=== PATIENT | male | born 1955 | race American Indian/Alaskan Native ===

== ENCOUNTER 2018-02-09 13:10 | Inpatient (IN) | payer MEDICAID ==
--- NOTE | 2018-02-09 13:29 | C.PDOC ---
History Of Present Illness 63 y/o male presents to the ER requesting detox from ETOH. Pt drinks a pint a day and his last drink was today. He is c/o decreased appetite and weight loss for the past few months. He was seen by PMD yesterday and he had bloodwork done. He has a referral for GI for colonoscopy and his f/u in 2 weeks. Denies having fever, chills, nausea, and vomiting. Time Seen by Provider: 02/09/18 13:24 Chief Complaint (Nursing): Substance Abuse History Per: Patient History/Exam Limitations: no limitations Onset/Duration Of Symptoms: Days Current Symptoms Are (Timing): Still Present Severity: Moderate Past Medical History Reviewed: Historical Data, Nursing Documentation, Vital Signs Vital Signs: Last Vital Signs Temp 99.2 F 02/09/18 16:18 Pulse 94 H 02/09/18 16:18 Resp 16 02/09/18 16:18 BP 161/84 H 02/09/18 16:18 Pulse Ox 98 02/09/18 18:45 - Medical History PMH: Asthma Other Surgeries: Hx of surgeries Family History: States: No Known Family Hx - Social History Hx Alcohol Use: Yes Hx Substance Use: Yes (last use 2 weeks ago) - Immunization History Hx Tetanus Toxoid Vaccination: No Hx Influenza Vaccination: No Hx Pneumococcal Vaccination: No Review Of Systems Constitutional: Positive for: Weight loss. Negative for: Fever, Chills Physical Exam - Physical Exam Appears: Non-toxic, No Acute Distress, Other (cachectic) Skin: Normal Color, Warm, Dry Head: Atraumatic, Normacephalic Eye(s): bilateral: Normal Inspection Nose: Normal Oral Mucosa: Moist Neck: Supple Chest: Symmetrical Cardiovascular: Rhythm Regular Respiratory: Normal Breath Sounds, No Rales, No Rhonchi, No Wheezing Gastrointestinal/Abdominal: Bowel Sounds, Soft, No Tenderness, No Guarding, No Rebound ED Course And Treatment - Laboratory Results Result Diagrams: 02/09/18 13:54 02/09/18 13:54 O2 Sat by Pulse Oximetry: 98 Medical Decision Making Medical Decision Making: Plan: --Labs --UA pt is medically cleared for deotx admission, acceptped by Dr Braswell. seen by crisis Disposition Discussed With : Geraldo Braswell Doctor Will See Patient In The: Hospital - Disposition Disposition: HOSPITALIZED Disposition Time: 16:02 Condition: GOOD - Clinical Impression Clinical Impression: Alcohol use disorder, severe, dependence, Opioid use disorder, severe, dependence - PA / GAS STATION OPERATOR / Resident Statement MD/DO has reviewed & agrees with the documentation as recorded. - Scribe Statement The provider has reviewed the documentation as recorded by the Scribe Reynold Mckeon Provider Attestation All medical record entries made by the Scribe were at my direction and personally dictated by me. I have reviewed the chart and agree that the record accurately reflects my personal performance of the history, physical exam, medical decision making, and the department course for this patient. I have also personally directed, reviewed, and agree with the discharge instructions and disposition.
[2018-02-09 14:00] LABS: BASO # 0.1 K/uL (0.0-0.2); BASO % 0.7 % (0.0-2.0); EOS % 0.1 % (0.0-4.0); HEMOGLOBIN 12.7 g/dL (12.0-18.0); LYMPH # 1.4 K/uL (1.0-4.3); LYMPH % 18.4 % (20.0-40.0); MEAN CELL VOLUME 90.6 fL (80.0-94.0); MEAN CORPUSCULAR HEMOGLOBIN 30.5 pg (27.0-31.0); MEAN CORPUSCULAR HGB CONC 33.7 g/dL (33.0-37.0); MONO # 0.4 K/uL (0.0-0.8); MONO % 4.7 % (0.0-10.0); NEUT # 5.9 K/uL (1.8-7.0); NEUT % 76.1 % (50.0-75.0); RBC 4.15 Mil/uL (4.40-5.90); RED CELL DISTRIBUTION WIDTH 14.1 % (11.5-14.5); WHITE BLOOD COUNT 7.7 K/uL (4.8-10.8)
[2018-02-09 14:05] LABS: SQUAMOUS EPITHIAL 5 /hpf (0-5); URINE BILIRUBIN NEGATIVE (NEGATIVE); URINE BLOOD NEGATIVE (NEGATIVE); URINE CLARITY Hazy (Clear); URINE COLOR Yellow (YELLOW); URINE GLUCOSE (UA) NORMAL (Normal); URINE LEUKOCYTE ESTERASE NEG Leu/uL (Negative); URINE PROTEIN NEGATIVE (NEGATIVE); URINE UROBILINOGEN NORMAL mg/dL (0.2-1.0)
[2018-02-09 14:12] LABS: ALB/GLOB RATIO 1.2 (1.0-2.1); ALBUMIN 4.5 g/dL (3.5-5.0); ALT/SGPT 73 U/L (21-72); AST/SGOT 172 U/L (17-59); BLOOD UREA NITROGEN 10 mg/dL (9-20); CALCIUM 9.2 mg/dl (8.6-10.4); GFR NON-AFRICAN AMERICAN > 60
[2018-02-09 14:31] LABS: BARBITURATES, UR NEGATIVE (NEGATIVE); BENZODIAZEPINES, UR NEGATIVE (NEGATIVE); OPIATES, UR NEGATIVE (NEGATIVE); PHENCYCLIDINE, UR NEGATIVE (NEGATIVE)
--- NOTE | 2018-02-09 18:30 | PCM.BM ---
Treatment Plan Problems - Problems identified on initial assessmt Potential for alcohol withdrawal Date Initiated: 02/09/18 Time Initiated: 18:30 Assessment reference: NA Status: Active Treatment assets and liabiliti Patient Assests: ADL independent, negotiates basic needs, cognitively intact Patient Liabilities: substance abuse - Milieu Protocol Maintain good personal hygiene: daily Encourage regular showers, daily Remind patient to perform daily oral care, daily Assist patient to perform ADL's Conduct patient checks and document Observation sheet: Q15 minutes Maintain personal safety: every shift Educate patient to report safety concerns to staff, every shift Monitor environment for contraband/sharps Medication safety: Monitor for expected outcome, potential side effects: every shift, Assess barriers to learning: every shift, Assess readiness for medication education: every shift
--- NOTE | 2018-02-10 09:09 | PCM.PSYCH ---
Initial Psychiatric Evaluation - Initial Psychiatric Evaluation Type of Admission: Voluntary Legal Status: Capacity Chief Complaint (in patient's own words): I'm here for alcohol detox History of Present Illness and Precipitating Events: Pt is 63 years old who is , has no children, lives with 2 friends in a home, and is currently unemployed. Pt presenting for EtOH detoxification. He last drank this morning, and he has about 1 pt/day of vodka. This is his first detox for EtOH. He has been drinking EtOH since he was 11 years old. Pt also confirms to be using heroin (intranasally) 5 bags/day. He last used it 2 weeks ago and he has been detoxified for this about 15 times, last detox being last year. He was sober after this detoxification for 2 weeks, but relapsed because of depression. Pt states that his longest sobriety from this was 5 years. Pt smokes cigarettes 1 pack/day, but denies marijuana, cocaine, or any other drugs. Withdrawal symptoms are present Psych Hx: Pt confirms depression, decreased appetite (lost 30 lbs within 6 months), insomnia. Pt confirms agitation, impulsivity, but denies flight of ideas. Pt denies auditory, visual, or tactile hallucinations. Pt denies SI/HI. Pt denies any traumatic Hx Family Psych Hx: Unremarkable Legal Hx: Arrested in 2006 for possession of drugs Medical Hx: Pt is unsure of his history. Pt states he's taking medication but is unsure of what they are. Per the nurse, medications are Ventolin HFA 1 puff q4 PRN, Wellbutrin, 50mg, Advair. Per the nurse, the pt only brought Ventalin with him. Pt is unsure of his plan after he leaves detoxification. Current Medications: Active Medications Generic Name Dose Route Start Last Admin Trade Name Freq PRN Reason Stop Dose Admin Clonidine HCl 0.1 mg 02/09/18 19:12 02/10/18 06:23 Catapres PO 0.1 mg Q8 PRN Administration alcohol withdrawal Folic Acid 1 mg 02/10/18 10:00 Folic Acid PO DAILY ROCHELLE Lorazepam 2 mg 02/09/18 17:15 02/10/18 08:40 Ativan PO 02/14/18 17:14 Not Given Q4 ROCHELLE Taper Lorazepam 1 mg 02/09/18 17:15 02/10/18 06:23 Ativan PO 1 mg Q4H PRN Administration Symptoms of alcohol withdrawl Lorazepam 0 mg 02/10/18 09:15 Ativan PO 02/15/18 09:14 .TAPER ROCHELLE Taper Multivitamins 1 tab 02/10/18 10:00 Hexavitamin PO DAILY ROCHELLE Thiamine HCl 100 mg 02/10/18 10:00 Vitamin B1 Tab PO DAILY ROCHELLE Trazodone HCl 50 mg 02/09/18 17:15 Desyrel PO HS PRN Insomnia Past Psychiatric History - Past Psychiatric History Previous Treatment History: None Pertinent Medical Hx (Current Medical&Sleep Prob, Allergies): Allergies Allergy/AdvReac Type Severity Reaction Status Date / Time No Known Allergies Allergy Verified 02/09/18 13:18 Albuterol Sulfate [Ventolin Hfa] 1 puff IH PRN PRN 02/09/18 Bupropion HCl [Wellbutrin Sr] 150 mg PO DAILY 02/09/18 Fluticasone/Salmeterol [Airduo Respiclick 113-14 Mcg] 1 each IH DAILY 02/09/18 Folic Acid 1 mg PO DAILY 02/09/18 Thiamine HCl [Vitamin B-1] 50 mg PO DAILY 02/09/18 amLODIPine [Norvasc] 10 mg PO DAILY 02/09/18 chlordiazePOXIDE [Chlordiazepoxide HCl] 25 mg PO DAILY 02/09/18 Review of Systems - Review of Systems All systems: reviewed and no additional remarkable complaints except - Psychiatric Psychiatric: As Per HPI, Abnormal Sleep Pattern (Insomnia), Anhedonia, Change in Appetite (Decreased appetite), Other (Agitation, impulsivity). absent: Auditory Hallucinations, Hallucinations, Homicidal Ideation, Suicidal Ideation, Visual Hallucinations, Tactile Hallucinations Mental Status Examination - Personal Presentation Personal Presentation: Looks stated age - Affect Affect: Constricted - Motor Activity Motor Activity: Calm - Reliability in Providing Information Reliability in Providing Information: Good - Speech Speech: Organized - Mood Mood: Depressed - Formal Thought Process Formal Thought Process: No Impairment - Obsessions/Compulsions Obsessions: No Compulsions: No - Cognitive Functions Orientation: Person, Place, Situation Sensorium: Alert Attention/Concentration: Attentive Abstract Thinking: [place] Estimate of Intelligence: Below average Judgement: Imparied, as evidence by: Poor judgement, Intact, as evidence by: Insight regarding need for hospitalization - Risk Risk: Withdrawal, Diminished functioning - Limitations Limitations: Living alone DSM 5 DX - DSM 5 DSM 5 Diagnosis: EtOH withdrawal EtOH use disorder, severe Opioid use severe in remission on agonist therapy - Recommended/Plan of Treatment Treatment Recommendations and Plan of Treatment: EtOH withdrawal EtOH use disorder, severe Opioid use severe in remission on agonist therapy CBT Attend groups and activities Supportive therapy and psychoeducation RI for abstinence Taper with Ativan Continue Methadone 50 mg - maintenance dose Gabapentin for augmentation if needed As needed medications All risks, benefits and alternatives of the meds discussed, and the pt agreed and understood. Encourage MAT Refer to rehab or IOP, and self-help groups Smoking cessation with RI Nicotine patch if needed
[2018-02-10] MEDS: Multiple Vitamins Tab PO SCH (10:03)
[2018-02-11] MEDS: Multiple Vitamins Tab PO SCH (09:16)
--- NOTE | 2018-02-11 12:02 | PCM.PYCHPN ---
Psychiatric Progress Note - Psychiatric Progress Note Patient seen today, length of contact: 15 min Patient Chief Complaint: I'm here for alcohol detox Problems Identified/Issues Discussed: Patient seen and evaluated, chart reviewed and discussed with the nurse. Patient reports withdrawal symptoms including abdominal cramps, anxiety, nausea , headaches and sweating. He remained isolated and withdrawn, and confined to his room. He denies any depressed mood, or any feelings of hopelessness and helplessness. He denies any suicidal ideation, homicidal ideation, any AVH or any paranoia. Patient is compliant with medications and denies any side effects. Symptoms are improving but pt needs more time to stabilize. Support and psychoeducation given. Medication Change: Yes Medical Record Reviewed: Yes Mental Status Examination - Cognitive Function Orientation: Person, Place, Situation Memory: Intact Attention: WNL Concentration: Poor Association: WNL Fund of Knowledge: Poor - Mood Mood: Depressed - Affect Affect: Constricted - Speech Speech: Soft - Formal Thought Process Formal Thought Process: No Impairment - Suicidal Ideation Suicidal Ideation: No - Homicidal Ideation Homicidal Ideation: No Goal/Treatment Plan - Goal/Treatment Plan Need for Continued Stay: Severe depression anxiety, Severe functional impairment Progress Toward Problem(s) and Goals/Treatment Plan: EtOH withdrawal EtOH use disorder, severe Opioid use severe in remission on agonist therapy CBT Attend groups and activities Supportive therapy and psychoeducation [place] for abstinence Taper with Ativan Continue Methadone 50 mg - maintenance dose Gabapentin for augmentation if needed As needed medications All risks, benefits and alternatives of the meds discussed, and the pt agreed and understood. Encourage MAT Refer to rehab or IOP, and self-help groups Smoking cessation with [place] Nicotine patch if needed - Smoking Cessation Smoking Cessation Initiated: No
[2018-02-11] MEDS: Methadone 40 mg Tab PO SCH (12:10)
--- NOTE | 2018-02-12 00:18 | CP.PCM.HP ---
<Garry Lewis P - Last Filed: 02/12/18 07:47> Meds Allergies/Adverse Reactions: Allergies Allergy/AdvReac Type Severity Reaction Status Date / Time No Known Allergies Allergy Verified 02/09/18 13:18 Results - Vital Signs Recent Vital Signs: Last Vital Signs Temp 99 F 02/12/18 01:35 Pulse 90 02/12/18 01:35 Resp 12 02/12/18 01:35 BP 160/100 H 02/12/18 01:35 Pulse Ox 98 02/12/18 01:35 - Labs Result Diagrams: 02/12/18 00:27 02/12/18 00:27 Labs: Laboratory Results - last 24 hr 02/12/18 02/12/18 02/12/18 00:27 00:27 00:27 WBC 8.6 RBC 4.07 L Hgb 12.1 Hct 36.4 MCV 89.5 MCH 29.8 MCHC 33.3 RDW 13.7 Plt Count 175 MPV 9.8 Neut % (Auto) 68.3 Lymph % (Auto) 23.1 [place] % (Auto) 7.3 Eos % (Auto) 0.7 Baso % (Auto) 0.6 Neut # (Auto) 5.9 Lymph # (Auto) 2.0 [place] # (Auto) 0.6 Eos # (Auto) 0.1 Baso # (Auto) 0.1 PT 11.7 INR 1.1 Sodium 137 Potassium 4.2 Chloride 96 L Carbon Dioxide 30 Anion Gap 15 BUN 18 Creatinine 0.6 L Est GFR ( Amer) > 60 Est GFR (Non-Af Amer) > 60 Random Glucose 106 Calcium 9.4 Phosphorus 4.5 Magnesium 1.6 Total Bilirubin 0.4 AST 110 H D ALT 63 Alkaline Phosphatase 115 Total Creatine Kinase 122 Total Protein 7.4 Albumin 3.8 Globulin 3.6 Albumin/Globulin Ratio 1.1 Attending/Attestation - Attestation I have personally seen and examined this patient.: Yes I have fully participated in the care of the patient.: Yes I have reviewed all pertinent clinical information: Yes Notes (Text): 02/12/18 07:48 Assessment Unsteady gait, ambulatory dysfunction multifactorial effect of meds, severe deconditioning, emaciation, ? withdrawal with htn, tacchycardia, with right fronto-parietal hematoma Cachexia Ex opiod abuse, on maintainence methadone,but still abusing heroin Alcohol abuse 1pint vodka/day Unknown, hiv, hepatitis status, has transaminitis though Plan Continue methadone, bzd, prn betablocker as needed, thiamine, mvt, fa HIV, hepatitis status USG of liver Fall, seizure, aspiration precautions PT/OT eval IVF If not complete communicative or any change in neuro status may need repeat brain ct to r/o slow subdural hematoma will need to avoid pharmacological dvt prophylaxis till above risk cleared. See orders for detail. <Richard Jones M - Last Filed: 02/12/18 08:57> History of Present Illness - History of Present Illness History of Present Illness: PGY1 H&P for Dr. Lewis 63 y M w/ PMHx of asthma, pancreatitits, iron deficiency anemia, HTN, alcohol abuse, heroin abuse was a transfer from detox. Patient was a detox patient from 02/09 for alcohol abuse. Patient states he is a chronic alcoholic and has been drinking since he was about [age] years old. He drinks roughly 1 pint/day of vodka. His last drink was AM of 02/09. Patient also states he consumes about 5 bags of heroin/day. Patient is a transfer from detox as patient was a code star last night 2/2 to a fall while attempting to get to the restroom. Patient was unable to reach the restroom in time and urinated on himself/floor, resulting in a wet floor that he slipped on. Patient suffered no LOC but did hit his head on the floor & suffered a 2inch hematoma on R side of head. On further questioning patient admits to weight loss over the past few months secondary to poor appetite. Additionally patient has had occasional palpitations along with episodes of non-bloody diarrhea over the past few months. PMD: Patient is unsure PMHx: asthma, pancreatitits, iron deficiency anemia, HTN, alcohol abuse, heroin abuse Meds: Patient is unsure PSHx: Patient denies Allergies: NKDA Social: Lives alone, smokes 1 pack/day, drinks 1 pint/ day of vodka, 5 bags of heroin/ day FHx: pt refused to answer Present on Admission - Present on Admission Any Indicators Present on Admission: No Review of Systems - Constitutional Constitutional: absent: Frequent Falls, Headache - EENT Eyes: absent: Blind Spots, Blurred Vision Nose/Mouth/Throat: absent: Dental Pain, Dry Mouth, Dysphagia - Cardiovascular Cardiovascular: Palpitations. absent: Chest Pain - Respiratory Respiratory: absent: Cough, Dyspnea, Hemoptysis, Wheezing - Gastrointestinal Gastrointestinal: Constipation, Diarrhea. absent: Abdominal Pain, Belching, Bloating - Musculoskeletal Musculoskeletal: absent: Abnormal Gait, Arthralgias, Myalgias - Integumentary Integumentary: absent: Bleeding Lesions, Change in Hair, Changing Lesions - Neurological Neurological: absent: Abnormal Gait, Abnormal Hearing, Headaches, Syncope - Endocrine Endocrine: absent: Deepening of Voice, Excessive Sweating - Hematologic/Lymphatic Hematologic: absent: Easy Bleeding, Easy Bruising Past Patient History - Infectious Disease Hx of Infectious Diseases: None - Past Medical History & Family History Past Medical History?: Yes - Past Social History Smoking Status: Heavy Smoker > 10 Cigarettes Daily - CARDIAC Hx Cardiac Disorders: No Hx Hypertension: Yes - PULMONARY Hx Asthma: Yes - NEUROLOGICAL HX Cerebrovascular Accident: No Hx Seizures: No - HEMATOLOGICAL/ONCOLOGICAL Hx Cancer: No Hx Human Immunodeficiency Virus (HIV): No - MUSCULOSKELETAL/RHEUMATOLOGICAL Hx Falls: No - GENITOURINARY/GYNECOLOGICAL Hx Sexually Transmitted Disorders: No - PSYCHIATRIC Hx Substance Use: Yes - SURGICAL HISTORY Hx Surgeries: Yes Hx Orthopedic Surgery: Yes - ANESTHESIA Hx Anesthesia: Yes Hx Anesthesia Reactions: No Physical Exam - Constitutional Appears: No Acute Distress, Older Than Stated Age Additional comments: cachetic - Head Exam Additional comments: ~ 2 inch hematoma on R forehead - Eye Exam Eye Exam: EOMI, Normal appearance - ENT Exam ENT Exam: Mucous Membranes Dry - Respiratory Exam Respiratory Exam: Clear to Auscultation Bilateral, NORMAL BREATHING PATTERN. absent: Rales, Rhonchi, Wheezes - Cardiovascular Exam Cardiovascular Exam: +S1, +S2. absent: Irregular Rhythm, Systolic Murmur - GI/Abdominal Exam GI & Abdominal Exam: Normal Bowel Sounds, Soft. absent: Distended, Firm, Guarding - Extremities Exam Extremities exam: Positive for: normal inspection. Negative for: calf tenderness, pedal edema - Neurological Exam Neurological exam: Alert, Oriented x3 - Psychiatric Exam Psychiatric exam: Flat Affect - Skin Skin Exam: Dry, Intact, Normal Color, Warm Results - Vital Signs Recent Vital Signs: Last Vital Signs Temp 99 F 02/11/18 21:01 Pulse 100 H 02/11/18 21:01 Resp 16 02/11/18 21:01 BP 131/87 02/11/18 21:01 Pulse Ox 98 02/11/18 21:01 - Labs Result Diagrams: 02/12/18 00:27 02/12/18 00:27 Assessment & Plan - Assessment and Plan (Free Text) Assessment: 1) Unsteady Gait -s/p code star/ fall - possibly 2/2 chronic alcohol abuse - initial & most recent examination pt A&Ox3. In between patient A&Ox2 -possibly due to medication (patient seems sleepy) vs result of fall - CT head: Trauma limited to the right frontal scalp hematoma/ laceration. No acute intracranial abnormality. Atrophy. Chronic microvascular ischemic changes. Punctate left basal ganglia calcification. Punctate hypodensity in the right basal ganglia suggestive for a prominent perivascular space versus small lacunar infarct. Small focal hypodensity seen at the level of the john on series 4, image 16 on the right suggestive for a small chronic/lacunar infarct. If symptoms persist, consider correlation with MRI. - Consider repeat CT/ MRI if patient continues to have change in mental status to r/o subdural/other neurological issues - C/w Folic aicd, thiamine, multivitamin daily - F/u TSH, T4, Folate, Free T4, B12, Vit D - PT evaluation 2) Severe deconditioning - Patient complains of Loss of appetite, weight loss, palpitations - F/u TSH, T4, Folate, Free T4, B12, Vit D - PT Evaluation 3) Dehydration - Gentle hydration NS @ 75ml/hr 4) Elevated LFTS - Pt is chronic ETOH consumer, heroin user - F/u HIV, Hepatitis panel - F/u abdominal ultrasound 5) Alcohol abuse/ heroine abuse - C/w psych orders: -Trazodone 50 mg PO HS PRN -Methadone 40mg PO daily -Methadone 10 mg PO daily -Lorazepam 1mg PO Q6 -Lorazepam 1mg PO Q4H PRN - aspiration precautions, seizure precautions, fall precautions - head of bed @45 degrees 6) Prophylaxis VTE - SCDs, VTE therapy contraindicated 2/2 recent head trauma
[2018-02-12 00:38] LABS: INR 1.1; PROTHROMBIN TIME 11.7 SECONDS (9.7-12.2)
[2018-02-12 00:43] LABS: BASO # 0.1 K/uL (0.0-0.2); BASO % 0.6 % (0.0-2.0); EOS # 0.1 K/uL (0.0-0.7); EOS % 0.7 % (0.0-4.0); HEMOGLOBIN 12.1 g/dL (12.0-18.0); LYMPH % 23.1 % (20.0-40.0); MEAN CELL VOLUME 89.5 fL (80.0-94.0); MEAN CORPUSCULAR HEMOGLOBIN 29.8 pg (27.0-31.0); MEAN CORPUSCULAR HGB CONC 33.3 g/dL (33.0-37.0); MEAN PLATELET VOLUME 9.8 fL (7.2-11.7); MONO # 0.6 K/uL (0.0-0.8); MONO % 7.3 % (0.0-10.0); NEUT # 5.9 K/uL (1.8-7.0); NEUT % 68.3 % (50.0-75.0); NRBC % 0.3 % (0.0-2.0); RBC 4.07 Mil/uL (4.40-5.90); RED CELL DISTRIBUTION WIDTH 13.7 % (11.5-14.5); WHITE BLOOD COUNT 8.6 K/uL (4.8-10.8)
[2018-02-12 00:50] LABS: ALB/GLOB RATIO 1.1 (1.0-2.1); ALBUMIN 3.8 g/dL (3.5-5.0); ALT/SGPT 63 U/L (21-72); AST/SGOT 110 U/L (17-59); BLOOD UREA NITROGEN 18 mg/dL (9-20); CALCIUM 9.4 mg/dl (8.6-10.4); GFR NON-AFRICAN AMERICAN > 60
[2018-02-12] MEDS: Sodium Chloride 0.9% 1,000 ML IV SCH ×2 (03:20→18:15)
--- NOTE | 2018-02-12 07:27 | CT ---
Date of service: 02/12/2018 PROCEDURE: CT HEAD WITHOUT CONTRAST. HISTORY: fall COMPARISON: None available. TECHNIQUE: Axial computed tomography images were obtained through the head/brain without intravenous contrast. Radiation dose: Total exam DLP = 1022 mGy-cm. This CT exam was performed using one or more of the following dose reduction techniques: Automated exposure control, adjustment of the mA and/or kV according to patient size, and/or use of iterative reconstruction technique. FINDINGS: HEMORRHAGE: No intracranial hemorrhage. BRAIN: Atrophy. Scattered focal lucencies in the subcortical and periventricular white matter suggestive for chronic microvascular ischemic change. Punctate left basal ganglia calcification. Punctate hypodensity in the right basal ganglia suggestive for a prominent perivascular space versus small lacunar infarct. Small focal hypodensity seen at the level of the john on series 4, image 16 on the right suggestive for a small chronic/lacunar infarct. VENTRICLES: Unremarkable. No hydrocephalus. CALVARIUM: Unremarkable. PARANASAL SINUSES: Unremarkable as visualized. No significant inflammatory changes. MASTOID AIR CELLS: Unremarkable as visualized. No inflammatory changes. OTHER FINDINGS: Right frontal scalp cephalohematoma. Atherosclerosis of the vertebral arteries and cavernous carotid arteries. IMPRESSION: Trauma limited to the right frontal scalp hematoma/ laceration. No acute intracranial abnormality. Atrophy. Chronic microvascular ischemic changes. Punctate left basal ganglia calcification. Punctate hypodensity in the right basal ganglia suggestive for a prominent perivascular space versus small lacunar infarct. Small focal hypodensity seen at the level of the john on series 4, image 16 on the right suggestive for a small chronic/lacunar infarct. If symptoms persist, consider correlation with MRI. These findings were preliminarily reported at 1:22 a.m. on 02/12/[address] Selena Reeder from [facility].
--- NOTE | 2018-02-12 08:56 | CP.PCM.PN ---
<ChiloLucrecia - Last Filed: 02/12/18 10:16> Subjective - Date & Time of Evaluation Date of Evaluation: 02/12/18 Time of Evaluation: 08:00 - Subjective Subjective: PGY3 medicine progress progress note for Dr. Bell: Patient was seen and examined at bedside. Patient stated he has been unintentionally losing weight due to drinking alcohol instead of eating. He reports palpitations on and off at times and feels that his heart sometimes races. He denies current chest pain or shortness of breath. He also reports mild generalized abdominal pain which he states he can't describe. He was a code star last night and states that he has pain over the right temporal region above his eye where his head was hit. Denies changes in vision. He is having normal bowel movements and urinating well. No new complaints at this time. Objective - Vital Signs/Intake and Output Vital Signs (last 24 hours): Temp Pulse Resp BP Pulse Ox 98.4 F 86 20 173/108 H 95 02/12/18 08:37 02/12/18 08:37 02/12/18 08:37 02/12/18 08:37 02/12/18 08:37 Intake and Output: 02/12/18 02/12/18 06:59 18:59 Intake Total 540 Output Total 800 270 Balance -260 -270 - Medications Medications: Current Medications Amlodipine Besylate (Norvasc) 5 mg PO DAILY [facility] Clonidine HCl (Catapres) 0.1 mg PO Q8 PRN PRN Reason: alcohol withdrawal Last Admin: 02/12/18 01:20 Dose: 0.1 mg Folic Acid (Folic Acid) 1 mg PO DAILY [facility] Last Admin: 02/11/18 09:17 Dose: 1 mg Sodium Chloride (Sodium Chloride 0.9%) 1,000 mls @ 75 mls/hr IV .[id number] [facility] Last Admin: 02/12/18 03:20 Dose: 75 mls/hr Lorazepam (Ativan) 1 mg PO Q4H PRN PRN Reason: Symptoms of alcohol withdrawl Last Admin: 02/11/18 21:16 Dose: 1 mg Lorazepam (Ativan) 1 mg PO Q6 [facility] PRN Reason: Taper Stop: 02/15/18 09:14 Last Admin: 02/12/18 05:36 Dose: 1 mg Methadone HCl (Methadose) 40 mg PO DAILY [facility] Last Admin: 02/11/18 12:10 Dose: 40 mg Methadone HCl (Methadone) 10 mg PO DAILY [facility] Last Admin: 02/11/18 12:10 Dose: 10 mg Multivitamins (Hexavitamin) 1 tab PO DAILY [facility] Last Admin: 02/11/18 09:16 Dose: 1 tab Thiamine HCl (Vitamin B1 Tab) 100 mg PO DAILY [facility] Last Admin: 02/11/18 09:16 Dose: 100 mg Trazodone HCl (Desyrel) 50 mg PO HS PRN PRN Reason: Insomnia Last Admin: 02/11/18 21:16 Dose: 50 mg - Labs Labs: 02/12/18 00:27 02/12/18 00:27 PT 11.7 SECONDS (9.7-12.2) 02/12/18 00:27 INR 1.1 02/12/18 00:27 - Constitutional Appears: Non-toxic, No Acute Distress, Cachectic - Head Exam Additional comments: hematoma on right side of head about 2cm above right eye. no laceration - Eye Exam Eye Exam: EOMI - ENT Exam ENT Exam: Mucous Membranes Moist - Respiratory Exam Respiratory Exam: Clear to Ausculation Bilateral, NORMAL BREATHING PATTERN. absent: Respiratory Distress - Cardiovascular Exam Cardiovascular Exam: REGULAR RHYTHM, +S1, +S2 - GI/Abdominal Exam GI & Abdominal Exam: Soft, Normal Bowel Sounds. absent: Distended, Firm, Guarding, Tenderness - Extremities Exam Extremities Exam: Normal Inspection - Back Exam Back Exam: NORMAL INSPECTION. absent: paraspinal tenderness - Neurological Exam Neurological Exam: Alert, Awake, CN II-XII Intact. absent: Normal Gait, Oriented x3 Neuro motor strength exam: Left Upper Extremity: 4, Right Upper Extremity: 4, Left Lower Extremity: 4, Right Lower Extremity: 4 - Psychiatric Exam Psychiatric exam: Normal Affect, Normal Mood - Skin Skin Exam: Normal Color Assessment and Plan - Assessment and Plan (Free Text) Assessment: Cachexia -severe - possibly secondary chronic alcohol abuse - Folic acid, thiamine, multivitamin daily - f/u CT chest/abd/pelvis with IV contrast to r/o malignancy - NS at 75 cc/hour - Regular diet, encouraged PO intake - f/u B12, folate, vit D - f/u am labs Alcohol abuse/ heroine abuse - C/w psych orders: -Trazodone 50 mg PO HS PRN -Methadone 50mg PO daily -Lorazepam 1mg PO Q6 -Lorazepam 1mg PO Q4H PRN - aspiration precautions, seizure precautions, fall precautions - head of bed @45 degrees Hematoma, head - Due to code star on 02/11 - CT head02/11: Trauma limited to the right frontal scalp hematoma/ laceration. No acute intracranial abnormality. Atrophy. Chronic microvascular ischemic changes. Punctate left basal ganglia calcification. Punctate hypodensity in the right basal ganglia suggestive for a prominent perivascular space versus small lacunar infarct. Small focal hypodensity seen at the level of the john on series 4, image 16 on the right suggestive for a small chronic/lacunar infarct. If symptoms persist, consider correlation with MRI. - Will repeat head CT on 02/12 Palpitations - F/u TSH, T4, Folate, Free T4, B12, Vit D - f/u EKG - on tele monitor Hypertension - Amlodipine 5mg PO daily Dehydration - Gentle hydration NS @ 75ml/hr Elevated LFTS - Pt is chronic ETOH consumer, heroin user - F/u HIV, Hepatitis panel, lipase - F/u abdominal ultrasound Prophylaxis DVT - SCDs, out of bed to chair VTE therapy contraindicated 2/2 recent head trauma GI not indicated PT/OT <Sony Bell - Last Filed: 02/12/18 10:52> Objective - Vital Signs/Intake and Output Vital Signs (last 24 hours): Temp Pulse Resp BP Pulse Ox 98.4 F 86 20 173/108 H 95 02/12/18 08:37 02/12/18 08:37 02/12/18 08:37 02/12/18 08:37 02/12/18 08:37 Intake and Output: 02/12/18 02/12/18 06:59 18:59 Intake Total 540 Output Total 800 270 Balance -260 -270 - Medications Medications: Current Medications Amlodipine Besylate (Norvasc) 5 mg PO DAILY [facility] Last Admin: 02/12/18 10:06 Dose: 5 mg Clonidine HCl (Catapres) 0.1 mg PO Q8 PRN PRN Reason: alcohol withdrawal Last Admin: 02/12/18 01:20 Dose: 0.1 mg Folic Acid (Folic Acid) 1 mg PO DAILY [facility] Last Admin: 02/12/18 10:06 Dose: 1 mg Sodium Chloride (Sodium Chloride 0.9%) 1,000 mls @ 75 mls/hr IV .[id number] [facility] Last Admin: 02/12/18 03:20 Dose: 75 mls/hr Lorazepam (Ativan) 1 mg PO Q4H PRN PRN Reason: Symptoms of alcohol withdrawl Last Admin: 02/11/18 21:16 Dose: 1 mg Lorazepam (Ativan) 1 mg PO Q6 [facility] PRN Reason: Taper Stop: 02/15/18 09:14 Last Admin: 02/12/18 05:36 Dose: 1 mg Methadone HCl (Methadose) 40 mg PO DAILY [facility] Last Admin: 02/12/18 10:06 Dose: 40 mg Methadone HCl (Methadone) 10 mg PO DAILY [facility] Last Admin: 02/12/18 10:06 Dose: 10 mg Multivitamins (Hexavitamin) 1 tab PO DAILY [facility] Last Admin: 02/12/18 10:06 Dose: 1 tab Thiamine HCl (Vitamin B1 Tab) 100 mg PO DAILY [facility] Last Admin: 02/12/18 10:06 Dose: 100 mg Trazodone HCl (Desyrel) 50 mg PO HS PRN PRN Reason: Insomnia Last Admin: 02/11/18 21:16 Dose: 50 mg - Labs Labs: 02/12/18 00:27 02/12/18 00:27 PT 11.7 SECONDS (9.7-12.2) 02/12/18 00:27 INR 1.1 02/12/18 00:27 Attending/Attestation - Attestation I have personally seen and examined this patient.: Yes I have fully participated in the care of the patient.: Yes I have reviewed all pertinent clinical information, including history, physical exam and plan: Yes Notes (Text): 02/12/18 10:52 Medical attending: Patient was seen and examined by me, reviewed the above note by the medical imaging technologist and agree with the above note The patient was eating breakfast when we saw him. As reported before the patient is extremely emaciated. He was not in any acute distress, however he had a very slow affect and it appeared almost as if he was hesitant to talk to us. As mentioned previously the patient was prepared at [facility] when they noted that he had multiple falling. He's being treated at detox for withdrawal and is currently on methadone as well as an Ativan taper While it is true that many people who are drinking heavily tend to be malnourished and drink much more alcohol than the proper food - this patient on physical exam was so I'm stated that we do have to be worried if there could be some other process. The overnight team has ordered HIV, hepatitis, were also given check TSH as well. We'll also do a CAT scan of the chest abdomen and pelvis to see if he may have some type of malignancy. The problem is if he is positive for malignancy, the question now becomes how aggressive do we want to pursue this. We will have to have another discussion with the patient if this is the case Thank you very much, Sony Bell
[2018-02-12] MEDS: Methadone 40 mg Tab PO SCH (10:06)
[2018-02-12] MEDS: Multiple Vitamins Tab PO SCH (10:06)
--- NOTE | 2018-02-12 12:15 | US ---
Abdominal ultrasound History: Elevated liver enzymes. Comparison: None available. Technique: Real-time sonography was performed through the abdomen. Findings: Liver: 14.2 centimeters in length. Increased echogenicity of the hepatic parenchymal cortex suggestive for fatty infiltration versus hepatic parenchymal disease. Clinical correlation. Gallbladder: Somewhat contracted. No calculi or sludge. Normal wall thickness of 3 millimeters. Negative sonographic Gallagher's sign. Common bile duct measures 4 millimeters, within normal limits. Limited visualization of the pancreas. Spleen measures 7.8 centimeters in length, within normal limits. Visualized aorta and IVC are preserved. Calcification and plaque within the aorta. Right kidney: 10.7 x 4.7 x 5.3 centimeters. No calculi or hydronephrosis. Left kidney: 9.2 x 4.4 x 4.8 centimeters. No calculi or hydronephrosis. Impression: Increased echogenicity of the hepatic parenchymal cortex suggestive for fatty infiltration versus hepatic parenchymal disease. Clinical correlation. Limited visualization of the pancreas.
[2018-02-12] MEDS ORDERED: Iodixanol 320 MG/ML 100 ML BOTTLE IV ONE (13:07)
[2018-02-12] MEDS: Ergocalciferol 50,000 Intl Units Cap PO SCH ×2 (15:45→20:29)
[2018-02-13] MEDS: Sodium Chloride 0.9% 1,000 ML IV SCH ×2 (06:34→21:55)
[2018-02-13 07:34] LABS: BASO % 0.8 % (0.0-2.0); EOS # 0.2 K/uL (0.0-0.7); EOS % 5.1 % (0.0-4.0); HEMOGLOBIN 11.8 g/dL (12.0-18.0); LYMPH # 1.5 K/uL (1.0-4.3); LYMPH % 34.5 % (20.0-40.0); MEAN CELL VOLUME 91.3 fL (80.0-94.0); MEAN CORPUSCULAR HEMOGLOBIN 30.3 pg (27.0-31.0); MEAN CORPUSCULAR HGB CONC 33.2 g/dL (33.0-37.0); MONO # 0.3 K/uL (0.0-0.8); MONO % 7.7 % (0.0-10.0); NEUT # 2.3 K/uL (1.8-7.0); NEUT % 51.9 % (50.0-75.0); NRBC % 0.1 % (0.0-2.0); RBC 3.9 Mil/uL (4.40-5.90); RED CELL DISTRIBUTION WIDTH 13.9 % (11.5-14.5); WHITE BLOOD COUNT 4.4 K/uL (4.8-10.8)
[2018-02-13 08:24] LABS: ALBUMIN 3.3 g/dL (3.5-5.0); ALT/SGPT 56 U/L (21-72); AST/SGOT 63 U/L (17-59); BLOOD UREA NITROGEN 8 mg/dL (9-20); CALCIUM 8.9 mg/dl (8.6-10.4); GFR NON-AFRICAN AMERICAN > 60
[2018-02-13 08:51] LABS: HEPATITIS B SURFACE AG Negative (NEGATIVE)
[2018-02-13 08:59] LABS: HEPATITIS A IGM NEGATIVE (NEGATIVE); HEPATITIS B CORE AB NEGATIVE (NEGATIVE)
[2018-02-13 09:50] LABS: HEPATITIS C ANTIBODY REACTIVE (NEGATIVE)
[2018-02-13] MEDS: Methadone 40 mg Tab PO SCH (09:50)
[2018-02-13] MEDS: Multiple Vitamins Tab PO SCH (09:51)
[2018-02-13 09:57] LABS: HEPATITIS C ANTIBODY REACTIVE (NEGATIVE)
--- NOTE | 2018-02-13 10:13 | CT ---
Date of service: 02/13/2018 PROCEDURE: CT HEAD WITHOUT CONTRAST. HISTORY: code star on 02/11, repeat COMPARISON: 02/12/2018. TECHNIQUE: Axial computed tomography images were obtained through the head/brain without intravenous contrast. Radiation dose: Total exam DLP = 1016.42 mGy-cm. This CT exam was performed using one or more of the following dose reduction techniques: Automated exposure control, adjustment of the mA and/or kV according to patient size, and/or use of iterative reconstruction technique. FINDINGS: HEMORRHAGE: No intracranial hemorrhage. BRAIN: There are mild chronic microangiopathic changes. There is no mass, mass effect or abnormal extra-axial fluid collection. There is no territorial infarction. The midline sagittal structures are normal. VENTRICLES: There is mild age-related global parenchymal volume loss and proportionate enlargement of the ventricles and cortical sulci. CALVARIUM: There is no calvarial fracture. There is redemonstration of a large right frontoparietal scalp hematoma. PARANASAL SINUSES: Unremarkable as visualized. No significant inflammatory changes. MASTOID AIR CELLS: Unremarkable as visualized. No inflammatory changes. OTHER FINDINGS: None. IMPRESSION: No acute intracranial abnormality. No significant interval change. Redemonstration of large frontoparietal scalp hematoma.
--- NOTE | 2018-02-13 10:27 | CP.PCM.PN ---
<Tanvir Weinstein - Last Filed: 02/13/18 15:36> Subjective - Date & Time of Evaluation Date of Evaluation: 02/13/18 Time of Evaluation: 10:20 - Subjective Subjective: PGY-1 Medicine Progress Note for Dr. Caceres Patient was seen and examined at bedside this AM, eating breakfast. No acute events reported overnight. Patient appears emaciated on exam, was not in any acute distress but continues to have a slow affect. Little history obtained this morning, as patient was noncommunicative to multiple questions being asked ; alert and oriented x2. Objective - Vital Signs/Intake and Output Vital Signs (last 24 hours): Temp Pulse Resp BP Pulse Ox 97.5 F L 70 20 173/105 H 100 02/13/18 00:00 02/13/18 01:49 02/13/18 00:00 02/13/18 00:00 02/13/18 00:00 Intake and Output: 02/13/18 02/13/18 06:59 18:59 Intake Total 1600 Output Total 1000 Balance 600 - Medications Medications: Current Medications Amlodipine Besylate (Norvasc) 5 mg PO DAILY [facility] Last Admin: 02/13/18 09:51 Dose: 5 mg Clonidine HCl (Catapres) 0.1 mg PO Q8 PRN PRN Reason: alcohol withdrawal Last Admin: 02/13/18 01:21 Dose: 0.1 mg Ergocalciferol (Drisdol 50,000 Intl Units Cap) 1 cap PO Q7D [facility] Last Admin: 02/12/18 20:29 Dose: 1 cap Folic Acid (Folic Acid) 1 mg PO DAILY [facility] Last Admin: 02/13/18 09:51 Dose: 1 mg Sodium Chloride (Sodium Chloride 0.9%) 1,000 mls @ 75 mls/hr IV .[id number] [facility] Last Admin: 02/13/18 06:34 Dose: 75 mls/hr Lorazepam (Ativan) 1 mg PO Q4H PRN PRN Reason: Symptoms of alcohol withdrawl Last Admin: 02/11/18 21:16 Dose: 1 mg Lorazepam (Ativan) 1 mg PO Q8 [facility] PRN Reason: Taper Stop: 02/15/18 09:14 Last Admin: 02/13/18 05:38 Dose: 1 mg Methadone HCl (Methadose) 40 mg PO DAILY [facility] Last Admin: 02/13/18 09:50 Dose: 40 mg Methadone HCl (Methadone) 10 mg PO DAILY [facility] Last Admin: 02/13/18 09:50 Dose: 10 mg Multivitamins (Hexavitamin) 1 tab PO DAILY [facility] Last Admin: 02/13/18 09:51 Dose: 1 tab Thiamine HCl (Vitamin B1 Tab) 100 mg PO DAILY [facility] Last Admin: 02/13/18 09:50 Dose: 100 mg Trazodone HCl (Desyrel) 50 mg PO HS PRN PRN Reason: Insomnia Last Admin: 02/11/18 21:16 Dose: 50 mg - Labs Labs: 02/13/18 07:24 02/13/18 07:24 PT 11.7 SECONDS (9.7-12.2) 02/12/18 00:27 INR 1.1 02/12/18 00:27 - Constitutional Appears: No Acute Distress, Confused, Chronically Ill - Head Exam Additional comments: hematoma on right side of head about 2cm above right eye. no laceration - Eye Exam Eye Exam: EOMI, Normal appearance - ENT Exam ENT Exam: Mucous Membranes Moist, Normal Exam - Respiratory Exam Respiratory Exam: Clear to Ausculation Bilateral, NORMAL BREATHING PATTERN. absent: Rales, Rhonchi, Wheezes - Cardiovascular Exam Cardiovascular Exam: REGULAR RHYTHM, +S1, +S2 - GI/Abdominal Exam GI & Abdominal Exam: Soft, Normal Bowel Sounds. absent: Distended, Firm, Guarding, Rigid, Tenderness, Mass - Extremities Exam Extremities Exam: Normal Capillary Refill, Normal Inspection. absent: Tenderness - Back Exam Back Exam: NORMAL INSPECTION - Neurological Exam Neurological Exam: Alert, Awake Additional comments: A&O x2--pt can state full name and that he is in a hospital. - Psychiatric Exam Psychiatric exam: Flat Affect - Skin Skin Exam: Dry, Intact, Normal Color, Warm Assessment and Plan - Assessment and Plan (Free Text) Assessment: 63 yo M with PMHx of HTN, iron deficient anemia, anemia, alcohol abuse, and heroin abuse presenting from detox unit s/p fall resulting in a R sided hematoma to frontal scalp. Plan: Cachexia -pt looks emaciated on physical exam -possibly secondary chronic alcohol abuse -Folic acid, thiamine, multivitamin daily -NS at 75 cc/hour -Regular diet, encouraged PO intake -B12: 622 (02/12) -Vitamin D: 13.6 (02/12) Imaging: -CT chest/abd/pelvis w/ IV contrast (02/12): chronic pancreatitis; pancreatic duct, intrahepatic and extrahepatic biliary dilatation, no mass; tiny pelvic free fluid Abd U/S (02/12): Increased echogenicity of hepatic parenchymal cortex suggestive for fatty liver infiltration or hepatic parenchymal disease Alcohol abuse/ heroine abuse - C/w psych orders: -Trazodone 50 mg PO HS PRN -Methadone 50mg PO daily -Lorazepam 1mg PO Q6 -Lorazepam 1mg PO Q4H PRN - aspiration precautions, seizure precautions, fall precautions - head of bed @45 degrees Hematoma, head - Due to code star on 02/11 - CT head (02/11): Trauma limited to the right frontal scalp hematoma/ laceration. No acute intracranial abnormality. Atrophy. Chronic microvascular ischemic changes. Punctate left basal ganglia calcification. Punctate hypodensity in the right basal ganglia suggestive for a prominent perivascular space versus small lacunar infarct. Small focal hypodensity seen at the level of the john on series 4, image 16 on the right suggestive for a small chronic/ lacunar infarct. If symptoms persist, consider correlation with MRI. - repeat CT head (02/13): No acute intracranial abnormality Palpitations -TSH: 2.25 (02/12) -Free T4: 1.04 (02/12) -EKG (02/12): Sinus bradycardia with sinus arrhythmia, possible left atrial enlargement, and left ventricular hypertrophy -on tele monitor Hypertension - Amlodipine 5mg PO daily Dehydration - Gentle hydration NS @ 75ml/hr Elevated LFTS - Pt is chronic ETOH consumer, heroin user -Hep C Ab reactive -Per PMD--[employer] at [phone] -Pt was found to be reactive for Hep C in 2016 but never f/u with ID. -Abd US (02/12): Increased echogenicity of hepatic parenchymal cortex suggestive for fatty liver infiltration or hepatic parenchymal disease. Ppx, Diet, Disposition -DVT - SCDs, out of bed to chair -VTE therapy contraindicated 2/2 recent head trauma -GI not indicated -Dietary supplements, regular diet -f/u PT/OT recs Case discussed with Dr. Nicki Weinstein DO, PGY-1 <Moreno Caceres - Last Filed: 02/14/18 16:44> Objective - Vital Signs/Intake and Output Vital Signs (last 24 hours): Temp Pulse Resp BP Pulse Ox 98.1 F 72 20 156/88 H 100 02/14/18 07:00 02/14/18 07:00 02/14/18 07:00 02/14/18 10:30 02/14/18 07:00 Intake and Output: 02/14/18 02/14/18 06:59 18:59 Intake Total 1500 Output Total 600 Balance 900 - Medications Medications: Current Medications Amlodipine Besylate (Norvasc) 10 mg PO DAILY [facility] Last Admin: 02/14/18 11:00 Dose: 10 mg Clonidine HCl (Catapres) 0.1 mg PO Q8 PRN PRN Reason: alcohol withdrawal Last Admin: 02/13/18 23:53 Dose: 0.1 mg Ergocalciferol (Drisdol 50,000 Intl Units Cap) 1 cap PO Q7D [facility] Last Admin: 02/12/18 20:29 Dose: 1 cap Folic Acid (Folic Acid) 1 mg PO DAILY [facility] Last Admin: 02/14/18 09:44 Dose: 1 mg Lorazepam (Ativan) 1 mg PO Q4H PRN PRN Reason: Symptoms of alcohol withdrawl Last Admin: 02/11/18 21:16 Dose: 1 mg Lorazepam (Ativan) 1 mg PO Q24H [facility] PRN Reason: Taper Stop: 02/15/18 09:14 Last Admin: 02/14/18 09:43 Dose: 1 mg Methadone HCl (Methadose) 40 mg PO DAILY [facility] Last Admin: 02/14/18 09:43 Dose: 40 mg Methadone HCl (Methadone) 10 mg PO DAILY [facility] Last Admin: 02/14/18 09:44 Dose: 10 mg Multivitamins (Hexavitamin) 1 tab PO DAILY [facility] Last Admin: 02/14/18 09:44 Dose: 1 tab Nicotine (Nicoderm Cq) 1 patch TD DAILY [facility] Polyethylene Glycol (Miralax) 17 gm PO DAILY [facility] Thiamine HCl (Vitamin B1 Tab) 100 mg PO DAILY [facility] Last Admin: 02/14/18 09:44 Dose: 100 mg Trazodone HCl (Desyrel) 50 mg PO HS PRN PRN Reason: Insomnia Last Admin: 02/11/18 21:16 Dose: 50 mg - Labs Labs: 02/14/18 11:41 02/14/18 07:45 PT 11.7 SECONDS (9.7-12.2) 02/12/18 00:27 INR 1.1 02/12/18 00:27 Attending/Attestation - Attestation I have personally seen and examined this patient.: Yes I have fully participated in the care of the patient.: Yes I have reviewed all pertinent clinical information, including history, physical exam and plan: Yes Notes (Text): Patient was seen and examined. he is a poor historian This is a cachectic male with history of drug abuse brought from detox 1.Weight loss 2.Drug use-on methadone 3.Falls 4.Possible dementia 5.Hep c Patient has a primary care and was recommended for ID follow up for hepc. We will get more details from his family and follow CT report PT recommend rehab.D/w social work assistant. Difficult to discharge to rehab on methadone. d/w resident.I agree with the assessment and the plan
--- NOTE | 2018-02-13 17:07 | CT ---
Date of service: 02/12/2018 PROCEDURE: CT Chest, Abdomen and Pelvis with intravenous contrast HISTORY: Rule out cancer, unintentional weight loss COMPARISON: None available. TECHNIQUE: IV dose administered: 100 cc Visipaque 320 contrast material Radiation dose: Total exam DLP = 286.37 mGy-cm. This CT exam was performed using one or more of the following dose reduction techniques: Automated exposure control, adjustment of the mA and/or kV according to patient size, and/or use of iterative reconstruction technique. FINDINGS: Note this examination is limited the due to marked paucity of intraperitoneal as well as retroperitoneal and subcutaneous fat. . Study is further limited by the lack of oral contrast material CT CHEST WITH CONTRAST: LUNGS: Centrilobular emphysematous changes upper lobe predominance. . There is a small of bulla right lung apex. Mild passive/dependent type atelectasis both lower lung martel. Nodular opacity seen in the left lower lobe with more localized elliptical shaped consolidation change more inferiorly and posteriorly located abutting the pleural surface in the left posterior sulcus. Surrounding ground-glass opacity the that may represent some old post inflammatory changes or pneumonitis. There is another somewhat stellate nodular opacity in the right middle lobe, the appearance of which is more consistent with postinflammatory scarring. Repeat CT scan 2 months to assess stability assess for any changes. . MEDIASTINUM: Heart size is within range of normal. No significant pericardial effusion. Ascending thoracic aorta measures approximately 3.3 cm and descending thoracic aorta measures approximately 2.7 cm. Pulmonary trunk measures approximately 3.0 cm. There is apparent debris within the mid esophagus with questionable wall thickening. Followup endoscopy may be prudent for further evaluation to exclude a intrinsic/invasive wall lesion. Central airways are midline and patent. No large central endoluminal lesions. LYMPH NODES: No significant mediastinal or hilar adenopathy. PLEURA: Unremarkable. No pneumothorax. No pleural fluid. BONES: Minor multilevel degenerative spondylosis of the thoracic spine. OTHER FINDINGS: None. CT ABDOMEN AND PELVIS: LIVER: Moderate fatty hepatic infiltration. No obvious hepatic mass or collection. Mild central intrahepatic biliary ductal dilatation. GALLBLADDER AND BILE DUCTS: The gallbladder appears elongated CC dimension with mild enhancement of the wall. No evidence of intraluminal gallbladder calculi. The common bile duct is dilated. There also appears to be a calcifications in the region of the pancreatic head which is poorly delineated on this exam. Clinical correlation recommended PANCREAS: The is pancreas poorly delineated on this study in part due to atrophy and the lack of oral contrast material. Additionally, there are apparent of pancreatic calcifications suggesting chronic pancreatitis sequela. . There may be mild dilatation of the proximal pancreatic duct as well. SPLEEN: Spleen exhibits normal size and attenuation pattern. ADRENALS: No definitive adrenal lesions. KIDNEYS AND URETERS: Kidneys demonstrate symmetric nephrograms. No evidence of nephrolithiasis or hydronephrosis. VASCULATURE: Unremarkable. No aortic aneurysm. BOWEL: Evaluation of the bowel is limited due to the lack of oral contrast material. Stomach is on incompletely distended with food debris liquid and air. There appears to be distended fluid-filled duodenum of with narrowing as it crosses the aorta beneath the SMA. . Additionally, there appears to be mild compression of the left renal vein as it passes beneath the SMA ; the possibility of nutcracker syndrome not excluded. Visualized loops of small bowel exhibit relatively normal contour and caliber. No evidence of acute mechanical small bowel obstruction. Large amount of stool seen throughout the colon consistent with fecal retention/constipation APPENDIX: Appendix not seen with certainty on this exam. PERITONEUM: Unremarkable. No free fluid. No free air. LYMPH NODES: Unremarkable. No enlarged lymph nodes. BLADDER: Urinary bladder is physiologically distended. No evidence of intraluminal urinary bladder calculi. . REPRODUCTIVE: Unremarkable. BONES: Multilevel degenerative spondylosis of the lumbar spine. OTHER FINDINGS: None. IMPRESSION: Limited study as described above. Centrilobular emphysematous changes upper lobe predominance. Nodular opacity seen in the left lower lobe with more localized elliptical shaped consolidation change more inferiorly and posteriorly located abutting the pleural surface in the left posterior sulcus. Surrounding ground-glass opacity the that may represent some old post inflammatory changes or pneumonitis. There is another somewhat stellate nodular opacity in the right middle lobe, the appearance of which is more consistent with postinflammatory scarring. Repeat CT scan 2 months to assess stability assess for any changes. Apparent debris within the mid esophagus with questionable wall thickening. Followup endoscopy may be prudent for further evaluation to exclude a intrinsic/invasive wall lesion. Findings suggest chronic sequela pancreatitis as above. Dilatation of the common bile duct and possibly dilatation of the proximal pancreatic duct. Pancreatic head is poorly delineated. Consider followup MRCP for further evaluation. Dedicated CT scan implying pancreatic protocol may be prudent as well to assess the pancreatic head region. There appears to be distended fluid-filled duodenum of with narrowing as it crosses the aorta beneath the SMA. . Additionally, there appears to be mild compression of the left renal vein as it passes beneath the SMA ; the possibility of nutcracker syndrome not excluded. Large amount of stool seen throughout the colon consistent with fecal retention/constipation
--- NOTE | 2018-02-13 23:38 | CP.PCM.PCO ---
Physician Communication Note - Physician Communication Note Physician Communication Note: Please do NOT re-enter a consult when the pt was already seen.
[2018-02-14 08:10] LABS: ALBUMIN 3.6 g/dL (3.5-5.0); ALT/SGPT 48 U/L (21-72); AST/SGOT 55 U/L (17-59); BLOOD UREA NITROGEN 10 mg/dL (9-20); CALCIUM 9.1 mg/dl (8.6-10.4); GFR NON-AFRICAN AMERICAN > 60
[2018-02-14] MEDS: Methadone 40 mg Tab PO SCH (09:43)
[2018-02-14] MEDS: Multiple Vitamins Tab PO SCH (09:44)
[2018-02-14] MEDS ORDERED: POLYETHYLENE GLYCOL 3350 17 GM/Dose PACKET PO ONE (10:45)
[2018-02-14 11:53] LABS: BASO % 0.9 % (0.0-2.0); EOS # 0.3 K/uL (0.0-0.7); EOS % 5.2 % (0.0-4.0); HEMOGLOBIN 11.3 g/dL (12.0-18.0); LYMPH # 1.3 K/uL (1.0-4.3); LYMPH % 25.9 % (20.0-40.0); MEAN CELL VOLUME 91.3 fL (80.0-94.0); MEAN CORPUSCULAR HEMOGLOBIN 30.5 pg (27.0-31.0); MEAN CORPUSCULAR HGB CONC 33.4 g/dL (33.0-37.0); MEAN PLATELET VOLUME 9.3 fL (7.2-11.7); MONO # 0.4 K/uL (0.0-0.8); MONO % 8.7 % (0.0-10.0); NEUT % 59.3 % (50.0-75.0); RBC 3.71 Mil/uL (4.40-5.90); RED CELL DISTRIBUTION WIDTH 13.6 % (11.5-14.5)
--- NOTE | 2018-02-14 12:25 | CP.PCM.CON ---
History of Present Illness - History of Present Illness History of Present Illness: Asked by hospitalist team for a GI consultation on this patient. 63 year old male with history of ETOH abuse, chronic pancreatitis, chronic HCV (treatment naive), opiate abuse on methadone, HTN who initially presented to hospital for ETOH detoxification. During course of therapy, patient suffered a fall with traumatic injury to head and was transferred to medical floor. GI called for evaluation of dysphagia and abnormal CT imaging. He describes progressive dysphagia to solid foods more than liquids for the past one month. He denies odynophagia or regurgitation of food product. He endorses overall fatigue and loss of appetite along with weight loss but cannot quantify amount. He admits to daily ETOH consumption, nearly 1 pint of vodka daily for the past several years. He otherwise denies vomiting, fever/chills, or rectal bleeding. No prior endoscopic evaluation. Social history: smokes 1 PPD cigarettes, +ETOH abuse Family history: reviewed, denies history of GI malignancy Review of Systems - Review of Systems Review of Systems: - All other comprehensive 12 point review of systems performed, negative - Constitutional Constitutional: Fatigue, Weight Loss - Cardiovascular Cardiovascular: absent: Acrocyanosis, Chest Pain, Chest Pain at Rest, Chest Pain with Activity, Claudication, Diaphoresis, Dyspnea, Dyspnea on Exertion, Edema, Irregular Heart Rhythm, Pain Radiating to Arm/Neck/Jaw, Leg Edema, Leg Ulcers, Lightheadedness, Orthopnea, Palpitations, Paroxysmal Nocturnal Dyspnea, Pedal Edema, Radiating Pain, Rapid Heart Rate, Slow Heart Rate, Syncope, Other - Respiratory Respiratory: absent: Cough, Dyspnea, Hemoptysis, Dyspnea on Exertion, Wheezing, Snoring, Stridor, Pain on Inspiration, Chest Congestion, Excessive Mucous Production, Change in Mucous Color, Pain with Coughing, Other - Gastrointestinal Gastrointestinal: Dysphagia - Musculoskeletal Musculoskeletal: absent: Abnormal Gait, Arthralgias, Atrophy, Back Pain, Deformity, Joint Swelling, Limited Range of Motion, Loss of Height, Muscle Cramps, Muscle Weakness, Myalgias, Neck Pain, Numbness, Radiating Pain into Limb , Stiffness, Tingling, Other - Neurological Neurological: Confusion Past Patient History - Infectious Disease Hx of Infectious Diseases: None - Past Medical History & Family History Past Medical History?: Yes - Past Social History Smoking Status: Heavy Smoker > 10 Cigarettes Daily - CARDIAC Hx Cardiac Disorders: No Hx Hypertension: Yes - PULMONARY Hx Asthma: Yes - NEUROLOGICAL HX Cerebrovascular Accident: No Hx Seizures: No - HEMATOLOGICAL/ONCOLOGICAL Hx Cancer: No Hx Human Immunodeficiency Virus (HIV): No - MUSCULOSKELETAL/RHEUMATOLOGICAL Hx Falls: No - GENITOURINARY/GYNECOLOGICAL Hx Sexually Transmitted Disorders: No - PSYCHIATRIC Hx Substance Use: Yes - SURGICAL HISTORY Hx Surgeries: Yes Hx Orthopedic Surgery: Yes - ANESTHESIA Hx Anesthesia: Yes Hx Anesthesia Reactions: No Meds Allergies/Adverse Reactions: Allergies Allergy/AdvReac Type Severity Reaction Status Date / Time No Known Allergies Allergy Verified 02/09/18 13:18 - Medications Medications: Current Medications Amlodipine Besylate (Norvasc) 10 mg PO DAILY [facility] Clonidine HCl (Catapres) 0.1 mg PO Q8 PRN PRN Reason: alcohol withdrawal Last Admin: 02/13/18 23:53 Dose: 0.1 mg Ergocalciferol (Drisdol 50,000 Intl Units Cap) 1 cap PO Q7D [facility] Last Admin: 02/12/18 20:29 Dose: 1 cap Folic Acid (Folic Acid) 1 mg PO DAILY [facility] Last Admin: 02/14/18 09:44 Dose: 1 mg Lorazepam (Ativan) 1 mg PO Q4H PRN PRN Reason: Symptoms of alcohol withdrawl Last Admin: 02/11/18 21:16 Dose: 1 mg Lorazepam (Ativan) 1 mg PO Q24H [facility] PRN Reason: Taper Stop: 02/15/18 09:14 Last Admin: 02/14/18 09:43 Dose: 1 mg Methadone HCl (Methadose) 40 mg PO DAILY [facility] Last Admin: 02/14/18 09:43 Dose: 40 mg Methadone HCl (Methadone) 10 mg PO DAILY [facility] Last Admin: 02/14/18 09:44 Dose: 10 mg Multivitamins (Hexavitamin) 1 tab PO DAILY [facility] Last Admin: 02/14/18 09:44 Dose: 1 tab Polyethylene Glycol (Miralax) 17 gm PO DAILY [facility] Thiamine HCl (Vitamin B1 Tab) 100 mg PO DAILY [facility] Last Admin: 02/14/18 09:44 Dose: 100 mg Trazodone HCl (Desyrel) 50 mg PO HS PRN PRN Reason: Insomnia Last Admin: 02/11/18 21:16 Dose: 50 mg Physical Exam - Constitutional Appears: Non-toxic, Cachectic - Head Exam Additional comments: R forehead lesion - Eye Exam Eye Exam: EOMI, Normal appearance - ENT Exam ENT Exam: Mucous Membranes Moist - Respiratory Exam Respiratory Exam: Clear to Auscultation Bilateral - Cardiovascular Exam Cardiovascular Exam: +S1, +S2 - GI/Abdominal Exam GI & Abdominal Exam: Normal Bowel Sounds, Soft Additional comments: non tender to palpation in four quadrants no palpable hepato/splenomegaly - Extremities Exam Extremities exam: Positive for: normal inspection - Neurological Exam Neurological exam: Alert, CN II-XII Intact, Oriented x3, Reflexes Normal - Psychiatric Exam Psychiatric exam: Flat Affect, Normal Mood - Skin Skin Exam: Dry, Intact, Normal Color, Warm Results - Vital Signs Recent Vital Signs: Last Vital Signs Temp 98.1 F 02/14/18 07:00 Pulse 72 02/14/18 07:00 Resp 20 02/14/18 07:00 BP 180/108 H 02/14/18 07:00 Pulse Ox 100 02/14/18 07:00 - Labs Result Diagrams: 02/14/18 11:41 02/14/18 07:45 Labs: Laboratory Results - last 24 hr 02/14/18 02/14/18 07:45 11:41 WBC 5.0 RBC 3.71 L Hgb 11.3 L Hct 33.9 L MCV 91.3 MCH 30.5 MCHC 33.4 RDW 13.6 Plt Count 161 MPV 9.3 Neut % (Auto) 59.3 Lymph % (Auto) 25.9 [place] % (Auto) 8.7 Eos % (Auto) 5.2 H Baso % (Auto) 0.9 Neut # (Auto) 3.0 Lymph # (Auto) 1.3 [place] # (Auto) 0.4 Eos # (Auto) 0.3 Baso # (Auto) 0.0 Sodium 138 Potassium 3.9 Chloride 103 Carbon Dioxide 28 Anion Gap 11 BUN 10 Creatinine 0.5 L Est GFR ( Amer) > 60 Est GFR (Non-Af Amer) > 60 Random Glucose 101 Calcium 9.1 Phosphorus 4.3 Magnesium 1.6 Total Bilirubin 0.3 AST 55 ALT 48 Alkaline Phosphatase 82 Total Protein 7.1 Albumin 3.6 Globulin 3.5 Albumin/Globulin Ratio 1.0 Assessment & Plan - Assessment and Plan (Free Text) Assessment: ETOH abuse Chronic pancreatitis HTN Opiate abuse on methadone Weight loss Dysphagia CT imaging reviewed by me showing pancreatic calcifications, atrophy, with mild dilation in PD and CBD. Wall thickening in mid esophagus with debris also present along with narrowing of D3 beneath SMA. Plan: - Diet as tolerated - Monitor for signs of ETOH withdrawal - Patient apparently scheduled for outpatient colonoscopy by PMD as per medical team - Obtain pancreatic protocol CT given dilation of PD/CBD to exclude for pancreatic head lesion - Will plan for EGD tomorrow to rule out esophageal neoplasm given dysphagia and abnormality noted on CT - Patient will require additional outpatient follow up for HCV, however no liver lesion noted on CT and he is currently not a candidate for treatment given ongoing ETOH abuse - Will continue to monitor patient clinical course
[2018-02-14] MEDS ORDERED: Iohexol 240 (50 ml) PO ONE (13:45)
--- NOTE | 2018-02-14 15:16 | CP.PCM.PN ---
<Tanvir Weinstein - Last Filed: 02/14/18 15:41> Subjective - Date & Time of Evaluation Date of Evaluation: 02/14/18 Time of Evaluation: 09:30 - Subjective Subjective: PGY-1 Medicine Progress Note for Dr. Caceres Patient seen and examined at bedside this AM. Overnight, he experienced an episode of HTN 186/103. Patient was administered 0.1mg of Clonidine and 10mg of presidine and BP was noted to drop to 158/100. This morning, pt continues to have a very flat affect, difficult to obtain information during interview. He endorses difficulties swallowing his food, solids more than liquids. Also endorses general fatigue, decreased appetite, and unintentional weight loss (~30 -40 lbs). No fevers/chills, headaches, dizziness, chest pain, palpitations, sob , cough, nausea/vomiting/diarrhea/constipation. Objective - Vital Signs/Intake and Output Vital Signs (last 24 hours): Temp Pulse Resp BP Pulse Ox 98.1 F 72 20 156/88 H 100 02/14/18 07:00 02/14/18 07:00 02/14/18 07:00 02/14/18 10:30 02/14/18 07:00 Intake and Output: 02/14/18 02/14/18 06:59 18:59 Intake Total 1500 Output Total 600 Balance 900 - Medications Medications: Current Medications Amlodipine Besylate (Norvasc) 10 mg PO DAILY [facility] Last Admin: 02/14/18 11:00 Dose: 10 mg Clonidine HCl (Catapres) 0.1 mg PO Q8 PRN PRN Reason: alcohol withdrawal Last Admin: 02/13/18 23:53 Dose: 0.1 mg Ergocalciferol (Drisdol 50,000 Intl Units Cap) 1 cap PO Q7D [facility] Last Admin: 02/12/18 20:29 Dose: 1 cap Folic Acid (Folic Acid) 1 mg PO DAILY [facility] Last Admin: 02/14/18 09:44 Dose: 1 mg Lorazepam (Ativan) 1 mg PO Q4H PRN PRN Reason: Symptoms of alcohol withdrawl Last Admin: 02/11/18 21:16 Dose: 1 mg Lorazepam (Ativan) 1 mg PO Q24H [facility] PRN Reason: Taper Stop: 02/15/18 09:14 Last Admin: 02/14/18 09:43 Dose: 1 mg Methadone HCl (Methadose) 40 mg PO DAILY [facility] Last Admin: 02/14/18 09:43 Dose: 40 mg Methadone HCl (Methadone) 10 mg PO DAILY [facility] Last Admin: 02/14/18 09:44 Dose: 10 mg Multivitamins (Hexavitamin) 1 tab PO DAILY [facility] Last Admin: 02/14/18 09:44 Dose: 1 tab Nicotine (Nicoderm Cq) 1 patch TD DAILY [facility] Polyethylene Glycol (Miralax) 17 gm PO DAILY [facility] Thiamine HCl (Vitamin B1 Tab) 100 mg PO DAILY [facility] Last Admin: 02/14/18 09:44 Dose: 100 mg Trazodone HCl (Desyrel) 50 mg PO HS PRN PRN Reason: Insomnia Last Admin: 02/11/18 21:16 Dose: 50 mg - Labs Labs: 02/14/18 11:41 02/14/18 07:45 PT 11.7 SECONDS (9.7-12.2) 02/12/18 00:27 INR 1.1 02/12/18 00:27 - Constitutional Appears: Non-toxic, Cachectic - Head Exam Additional comments: R forehead hematoma - Eye Exam Eye Exam: EOMI, Normal appearance - ENT Exam ENT Exam: Mucous Membranes Moist, Normal Exam - Neck Exam Neck Exam: Normal Inspection - Respiratory Exam Respiratory Exam: Clear to Ausculation Bilateral, NORMAL BREATHING PATTERN. absent: Rales, Rhonchi, Wheezes - Cardiovascular Exam Cardiovascular Exam: REGULAR RHYTHM, +S1, +S2 - GI/Abdominal Exam GI & Abdominal Exam: Soft, Normal Bowel Sounds. absent: Distended, Firm, Guarding, Rigid, Tenderness, Mass, Organomegaly, Rebound - Extremities Exam Extremities Exam: Normal Capillary Refill, Normal Inspection. absent: Pedal Edema - Back Exam Back Exam: NORMAL INSPECTION - Neurological Exam Neurological Exam: Alert, Awake, Oriented x3 - Psychiatric Exam Psychiatric exam: Flat Affect, Normal Mood - Skin Skin Exam: Dry, Intact, Normal Color, Warm Assessment and Plan - Assessment and Plan (Free Text) Assessment: 63 yo M with PMHx of HTN, iron deficient anemia, anemia, alcohol abuse, and heroin abuse presenting from detox unit s/p fall resulting in a R sided hematoma to frontal scalp: ETOH abuse Chronic pancreatitis HTN Opiate abuse on methadone Weight loss Dysphagia Plan: Cachexia -pt looks emaciated on physical exam -possibly secondary chronic alcohol abuse -Folic acid, thiamine, multivitamin daily -NS at 75 cc/hour -B12: 622 (02/12) -Vitamin D: 13.6 (02/12) Imaging: -CT chest/abd/pelvis w/ IV contrast (02/12): chronic pancreatitis; pancreatic duct, intrahepatic and extrahepatic biliary dilatation, no mass; nodules present in the left lower lobe and right middle lobe, mid esophagus appears to have debris with questionable wall thickening, and 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 tiny pelvic free fluid. Abd U/S (02/12): Increased echogenicity of hepatic parenchymal cortex suggestive for fatty liver infiltration or hepatic parenchymal disease GI recs (Dr. Valderrama) appreciated -diet as tolerated -continue to monitor for signs of withdrawal -Obtain pancreatic protocol CT given dilation of PD/CBD to exclude for pancreatic head lesion -plan for EGD tomorrow to rule out esophageal neoplasm given dysphagia and abnormality noted on CT -additional outpatient follow up for HCV, however no liver lesion noted on CT and he is currently not a candidate for treatment given ongoing ETOH abuse Alcohol abuse/ heroine abuse - C/w psych orders: -Trazodone 50 mg PO HS PRN -Methadone 50mg PO daily -Lorazepam 1mg PO Q6 -Lorazepam 1mg PO Q4H PRN - aspiration precautions, seizure precautions, fall precautions - head of bed @45 degrees Hematoma, head - Due to code star on 02/11 - CT head (02/11): Trauma limited to the right frontal scalp hematoma/ laceration. No acute intracranial abnormality. Atrophy. Chronic microvascular ischemic changes. Punctate left basal ganglia calcification. Punctate hypodensity in the right basal ganglia suggestive for a prominent perivascular space versus small lacunar infarct. Small focal hypodensity seen at the level of the john on series 4, image 16 on the right suggestive for a small chronic/ lacunar infarct. If symptoms persist, consider correlation with MRI. - repeat CT head (02/13): No acute intracranial abnormality Palpitations -TSH: 2.25 (02/12) -Free T4: 1.04 (02/12) -EKG (02/12): Sinus bradycardia with sinus arrhythmia, possible left atrial enlargement, and left ventricular hypertrophy -on tele monitor Hypertension - Amlodipine increased to 10 mg PO daily Dehydration - Gentle hydration NS @ 75ml/hr Elevated LFTS - Pt is chronic ETOH consumer, heroin user -Hep C Ab reactive -Per PMD--[facility] at [phone] -Pt was found to be reactive for Hep C in 2016 but never f/u with ID. -Abd US (02/12): Increased echogenicity of hepatic parenchymal cortex suggestive for fatty liver infiltration or hepatic parenchymal disease. Ppx, Diet, Disposition -DVT - SCDs, out of bed to chair -VTE therapy contraindicated 2/2 recent head trauma -GI not indicated -NPO after midnight -f/u PT/OT recs Case discussed with Dr. Nicki Weinstein DO, PGY-1 <Moreno Caceres - Last Filed: 02/15/18 09:49> Objective - Vital Signs/Intake and Output Vital Signs (last 24 hours): Temp Pulse Resp BP Pulse Ox 98.3 F 77 20 144/90 98 02/15/18 08:00 02/15/18 08:00 02/15/18 08:00 02/15/18 08:00 02/15/18 08:00 - Medications Medications: Current Medications Amlodipine Besylate (Norvasc) 10 mg PO DAILY [facility] Last Admin: 02/14/18 11:00 Dose: 10 mg Clonidine HCl (Catapres) 0.1 mg PO Q8 PRN PRN Reason: alcohol withdrawal Last Admin: 02/13/18 23:53 Dose: 0.1 mg Ergocalciferol (Drisdol 50,000 Intl Units Cap) 1 cap PO Q7D [facility] Last Admin: 02/12/18 20:29 Dose: 1 cap Folic Acid (Folic Acid) 1 mg PO DAILY [facility] Last Admin: 02/14/18 09:44 Dose: 1 mg Lorazepam (Ativan) 1 mg PO Q4H PRN PRN Reason: Symptoms of alcohol withdrawl Last Admin: 02/11/18 21:16 Dose: 1 mg Methadone HCl (Methadose) 40 mg PO DAILY [facility] Last Admin: 02/14/18 09:43 Dose: 40 mg Methadone HCl (Methadone) 10 mg PO DAILY [facility] Last Admin: 02/14/18 09:44 Dose: 10 mg Multivitamins (Hexavitamin) 1 tab PO DAILY [facility] Last Admin: 02/14/18 09:44 Dose: 1 tab Nicotine (Nicoderm Cq) 1 patch TD DAILY [facility] Polyethylene Glycol (Miralax) 17 gm PO DAILY [facility] Thiamine HCl (Vitamin B1 Tab) 100 mg PO DAILY [facility] Last Admin: 02/14/18 09:44 Dose: 100 mg Trazodone HCl (Desyrel) 50 mg PO HS PRN PRN Reason: Insomnia Last Admin: 02/11/18 21:16 Dose: 50 mg - Labs Labs: 02/15/18 07:44 02/15/18 07:44 PT 11.5 SECONDS (9.7-12.2) 02/15/18 07:44 INR 1.1 02/15/18 07:44 Attending/Attestation - Attestation I have personally seen and examined this patient.: Yes I have fully participated in the care of the patient.: Yes I have reviewed all pertinent clinical information, including history, physical exam and plan: Yes Notes (Text): Patient was seen and examined by me. discussed with the patient's girlfriend at bedside. Patient lives with her. Patient was not eating and loosing weight last few months. He has difficulty in swallowing solids ? D/w Dr tessa HAWKINS. He is planning to do EGD on him. Needs out patient primary care follow up. assessment and the plan discussed with the resident and I agree with the documentation
[2018-02-14] MEDS ORDERED: Iodixanol 320 MG/ML 100 ML BOTTLE IV ONE (16:18)
--- NOTE | 2018-02-14 17:17 | CT ---
Date of service: 02/14/[address] Indication: dilated PD, chronic pancreatitis Technique: Contiguous axial images of the abdomen without & with IV contrast utilizing pancreatic protocol. Coronal and Sagittal reformats generated and reviewed. This CT exam was performed using 1 or more of the following dose reduction techniques: Automated exposure control, adjustment of the MAA and/or kV according to patient size, and/or use of iterative reconstruction technique. Contrast: 100 cc Visipaque 320 Radiation dose: Total exam DLP = 453.68 MGy-cm. Comparison: CT chest, abdomen, pelvis with IV contrast performed 02/12/18 Findings: Visualized portions of the heart appear within normal limits of size. Stellate nodular opacity in the right middle lobe re-identified, possibly postinflammatory scarring. Mild bibasilar atelectasis. Thick-walled distal esophagus with evidence of gastroesophageal reflux. Decompressed gallbladder limits evaluation. Question gallbladder wall thickening. Intrahepatic biliary ductal dilatation. Common bile duct appears dilated, approximately 8 mm. The pancreas is not well seen likely due to both atrophy and patient's cachectic state. Coarse pancreatic calcifications. Pancreatic duct appears dilated measuring approximately 5 mm. 6 mm hypodense right adrenal gland nodule, possibly adenoma. The liver, kidneys, and right adrenal gland appear unremarkable. Coarse calcifications of the aorta and branches. The stomach contains debris limiting evaluation.Limited visualized bowel loops without evidence of obstruction. There is no definite free air. Moderate to severe constipation. Degenerative changes. Impression: Decompressed gallbladder limits evaluation. Question gallbladder wall thickening. Intrahepatic biliary ductal dilatation. Common bile duct appears dilated, approximately 8 mm. Correlate clinically. The pancreas is not well seen likely due to both atrophy and patient's cachectic state. Coarse pancreatic calcifications appear consistent with chronic pancreatitis. Pancreatic duct appears dilated measuring approximately 5 mm. 6 mm hypodense right adrenal gland nodule, possibly adenoma. Stellate nodular opacity in the right middle lobe re-identified, possibly postinflammatory scarring. Mild bibasilar atelectasis. Thick-walled distal esophagus with evidence of gastroesophageal reflux. Moderate to severe constipation.
--- NOTE | 2018-02-15 07:37 | CARD ---
APPROVED REPORT Date of service: 02/12/2018 EKG Measurement Heart [id number] <Conclusion> Sinus bradycardia with sinus arrhythmia Possible Left atrial enlargement Left ventricular hypertrophy Abnormal ECG
[2018-02-15 08:05] LABS: INR 1.1; PROTHROMBIN TIME 11.5 SECONDS (9.7-12.2)
[2018-02-15 08:11] LABS: ALBUMIN 3.6 g/dL (3.5-5.0); ALT/SGPT 41 U/L (21-72); AST/SGOT 50 U/L (17-59); BLOOD UREA NITROGEN 13 mg/dL (9-20); CALCIUM 9.4 mg/dl (8.6-10.4); GFR NON-AFRICAN AMERICAN > 60
[2018-02-15 08:20] LABS: BASO % 0.7 % (0.0-2.0); EOS # 0.2 K/uL (0.0-0.7); HEMOGLOBIN 12.5 g/dL (12.0-18.0); LYMPH # 1.5 K/uL (1.0-4.3); LYMPH % 31.5 % (20.0-40.0); MEAN CORPUSCULAR HEMOGLOBIN 30.3 pg (27.0-31.0); MEAN CORPUSCULAR HGB CONC 33.3 g/dL (33.0-37.0); MEAN PLATELET VOLUME 9.6 fL (7.2-11.7); MONO # 0.6 K/uL (0.0-0.8); MONO % 11.8 % (0.0-10.0); NEUT # 2.5 K/uL (1.8-7.0); NRBC % 0.2 % (0.0-2.0); RBC 4.13 Mil/uL (4.40-5.90); RED CELL DISTRIBUTION WIDTH 13.9 % (11.5-14.5); WHITE BLOOD COUNT 4.8 K/uL (4.8-10.8)
--- NOTE | 2018-02-15 09:40 | CP.PCM.PN ---
Subjective - Date & Time of Evaluation Date of Evaluation: 02/15/18 Time of Evaluation: 09:40 - Subjective Subjective: PGY-1 Medicine Progress Note for Dr. Caceres Patient seen and examined at bedside this AM. Pt continues to endorse epigastric discomfort, has not had a BM. No fevers/chill, nausea/vomiting/ diarrhea, headaches, dizziness, chest pain, palpitation, sob, cough. No other acute complaints. Objective - Vital Signs/Intake and Output Vital Signs (last 24 hours): Temp Pulse Resp BP Pulse Ox 98.3 F 77 20 144/90 98 02/15/18 08:00 02/15/18 08:00 02/15/18 08:00 02/15/18 08:00 02/15/18 08:00 - Medications Medications: Current Medications Amlodipine Besylate (Norvasc) [address] [facility] Last Admin: 02/14/18 11:00 Dose: 10 mg Clonidine HCl (Catapres) 0.1 mg PO Q8 PRN PRN Reason: alcohol withdrawal Last Admin: 02/13/18 23:53 Dose: 0.1 mg Ergocalciferol (Drisdol 50,000 Intl Units Cap) [address] [facility] Last Admin: 02/12/18 20:29 Dose: 1 cap Folic Acid (Folic Acid) [address] [facility] Last Admin: 02/14/18 09:44 Dose: 1 mg Lorazepam (Ativan) 1 mg PO Q4H PRN PRN Reason: Symptoms of alcohol withdrawl Last Admin: 02/11/18 21:16 Dose: 1 mg Methadone HCl (Methadose) [address] [facility] Last Admin: 02/14/18 09:43 Dose: 40 mg Methadone HCl (Methadone) [address] [facility] Last Admin: 02/14/18 09:44 Dose: 10 mg Multivitamins (Hexavitamin) [address] [facility] Last Admin: 02/14/18 09:44 Dose: 1 tab Nicotine (Nicoderm Cq) [address] [facility] Polyethylene Glycol (Miralax) [address] [facility] Thiamine HCl (Vitamin B1 Tab) [address] [facility] Last Admin: 02/14/18 09:44 Dose: 100 mg Trazodone HCl (Desyrel) 50 mg PO HS PRN PRN Reason: Insomnia Last Admin: 02/11/18 21:16 Dose: 50 mg - Labs Labs: 02/15/18 07:44 02/15/18 07:44 PT 11.5 SECONDS (9.7-12.2) 02/15/18 07:44 INR 1.1 02/15/18 07:44 - Constitutional Appears: Non-toxic, Cachectic - Head Exam Additional comments: R forehead hematoma - Eye Exam Eye Exam: EOMI, Normal appearance - ENT Exam ENT Exam: Mucous Membranes Moist, Normal Exam - Neck Exam Neck Exam: Normal Inspection - Respiratory Exam Respiratory Exam: Clear to Ausculation Bilateral, NORMAL BREATHING PATTERN. absent: Rales, Rhonchi, Wheezes - Cardiovascular Exam Cardiovascular Exam: REGULAR RHYTHM, +S1, +S2 - GI/Abdominal Exam GI & Abdominal Exam: Soft, Normal Bowel Sounds. absent: Distended, Firm, Guarding, Rigid, Tenderness, Organomegaly, Rebound - Extremities Exam Extremities Exam: Normal Capillary Refill, Normal Inspection. absent: Pedal Edema, Tenderness - Back Exam Back Exam: NORMAL INSPECTION - Neurological Exam Neurological Exam: Alert, Awake, Oriented x3 - Psychiatric Exam Psychiatric exam: Flat Affect - Skin Skin Exam: Dry, Intact, Normal Color, Warm Assessment and Plan - Assessment and Plan (Free Text) Assessment: 63 yo M with PMHx of HTN, iron deficient anemia, anemia, alcohol abuse, and heroin abuse presenting from detox unit s/p fall resulting in a R sided hematoma to frontal scalp: ETOH abuse Chronic pancreatitis HTN Opiate abuse on methadone Weight loss Dysphagia Plan: Cachexia -pt looks emaciated on physical exam -possibly secondary chronic alcohol abuse -Folic acid, thiamine, multivitamin daily -NS at 75 cc/hour -B12: 622 (02/12) -Vitamin D: 13.6 (02/12) Imaging: -CT chest/abd/pelvis w/ IV contrast (02/12): chronic pancreatitis; pancreatic duct, intrahepatic and extrahepatic biliary dilatation, no mass; nodules present in the left lower lobe and right middle lobe, mid esophagus appears to have debris with questionable wall thickening, and 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 tiny pelvic free fluid. Abd U/S (02/12): Increased echogenicity of hepatic parenchymal cortex suggestive for fatty liver infiltration or hepatic parenchymal disease GI recs (Dr. Valderrama) appreciated -continue to monitor for signs of withdrawal -pancreatic protocol CT (02/14): Intrahepatic biliary ductal dilatation, CBD dilated at 8 mm. Coarse calcifications consistent with chronic pancreatitis. Pancreatic duct dilated, measuring 5mm. Thick-walled distal esophagus w/ evidence of GERD -keep NPO -plan for EGD today to rule out esophageal neoplasm given dysphagia and abnormality noted on CT -additional outpatient follow up for HCV, however no liver lesion noted on CT and he is currently not a candidate for treatment given ongoing ETOH abuse Alcohol abuse/ heroine abuse - C/w psych orders: -Trazodone 50 mg PO HS PRN -Methadone 50mg PO daily -Lorazepam 1mg PO Q6 -Lorazepam 1mg PO Q4H PRN - aspiration precautions, seizure precautions, fall precautions - head of bed @45 degrees Hematoma, head - Due to code star on 02/11 - CT head (02/11): Trauma limited to the right frontal scalp hematoma/ laceration. No acute intracranial abnormality. Atrophy. Chronic microvascular ischemic changes. Punctate left basal ganglia calcification. Punctate hypodensity in the right basal ganglia suggestive for a prominent perivascular space versus small lacunar infarct. Small focal hypodensity seen at the level of the john on series 4, image 16 on the right suggestive for a small chronic/ lacunar infarct. If symptoms persist, consider correlation with MRI. - repeat CT head (02/13): No acute intracranial abnormality Palpitations -TSH: 2.25 (02/12) -Free T4: 1.04 (02/12) -EKG (02/12): Sinus bradycardia with sinus arrhythmia, possible left atrial enlargement, and left ventricular hypertrophy -on tele monitor Hypertension - Amlodipine increased to 10 mg PO daily Dehydration - Gentle hydration NS @ 75ml/hr Elevated LFTS - Pt is chronic ETOH consumer, heroin user -Hep C Ab reactive -Per PMD--[facility] at [phone] -Pt was found to be reactive for Hep C in 2016 but never f/u with ID. -Abd US (02/12): Increased echogenicity of hepatic parenchymal cortex suggestive for fatty liver infiltration or hepatic parenchymal disease. Ppx, Diet, Disposition -DVT - SCDs, out of bed to chair -VTE therapy contraindicated 2/2 recent head trauma -GI not indicated -NPO -f/u PT/OT recs Case discussed with Dr. Nicki Weinstein DO, PGY-1
[2018-02-15] MEDS ORDERED: Propofol 10 mg/ml Inj (20 ML) ONE (12:42)
--- NOTE | 2018-02-15 13:05 | CP.PCM.PN ---
Subjective - Date & Time of Evaluation Date of Evaluation: 02/15/18 Time of Evaluation: 13:02 - Subjective Subjective: Patient seen and examined, no acute events overnight, seen resting in bed comfortably. s/p EGD today showing lauren esophagitis, gastritis. Objective - Vital Signs/Intake and Output Vital Signs (last 24 hours): Temp Pulse Resp BP Pulse Ox 98.3 F 77 20 144/90 98 02/15/18 08:00 02/15/18 08:00 02/15/18 08:00 02/15/18 08:00 02/15/18 08:00 Intake and Output: 02/15/18 02/15/18 06:59 18:59 Intake Total 250 Balance 250 - Medications Medications: Current Medications Amlodipine Besylate (Norvasc) 10 mg PO DAILY [facility] Last Admin: 02/14/18 11:00 Dose: 10 mg Clonidine HCl (Catapres) 0.1 mg PO Q8 PRN PRN Reason: alcohol withdrawal Last Admin: 02/13/18 23:53 Dose: 0.1 mg Ergocalciferol (Drisdol 50,000 Intl Units Cap) 1 cap PO Q7D [facility] Last Admin: 02/12/18 20:29 Dose: 1 cap Fluconazole (Diflucan) 100 mg PO DAILY [facility] PRN Reason: Protocol Folic Acid (Folic Acid) 1 mg PO DAILY [facility] Last Admin: 02/14/18 09:44 Dose: 1 mg Lorazepam (Ativan) 1 mg PO Q4H PRN PRN Reason: Symptoms of alcohol withdrawl Last Admin: 02/11/18 21:16 Dose: 1 mg Methadone HCl (Methadose) 40 mg PO DAILY [facility] Last Admin: 02/14/18 09:43 Dose: 40 mg Methadone HCl (Methadone) 10 mg PO DAILY [facility] Last Admin: 02/14/18 09:44 Dose: 10 mg Multivitamins (Hexavitamin) 1 tab PO DAILY [facility] Last Admin: 02/14/18 09:44 Dose: 1 tab Nicotine (Nicoderm Cq) 1 patch TD DAILY [facility] Pantoprazole Sodium (Protonix Ec Tab) 40 mg PO ACB [facility] Polyethylene Glycol (Miralax) 17 gm PO DAILY [facility] Thiamine HCl (Vitamin B1 Tab) 100 mg PO DAILY [facility] Last Admin: 02/14/18 09:44 Dose: 100 mg Trazodone HCl (Desyrel) 50 mg PO HS PRN PRN Reason: Insomnia Last Admin: 02/11/18 21:16 Dose: 50 mg - Labs Labs: 02/15/18 07:44 02/15/18 07:44 PT 11.5 SECONDS (9.7-12.2) 02/15/18 07:44 INR 1.1 02/15/18 07:44 Assessment and Plan - Assessment and Plan (Free Text) Assessment: ETOH abuse Chronic pancreatitis Chronic HCV Dysphagia, weight loss - s/p EGD showing lauren esophagitis, gastritis CT pancreatic protocol reviewed by me showing pancreatic calcifications, dilated PD, no focal mass lesion present Plan: - Advance diet as tolerated - Begin PPI and diflucan therapy for esophageal candidiasis - Follow up EGD biopsy results - ETOH cessation counseling - Patient would benefit from outpatient colonoscopy given unexplained weight loss and further follow up of chronic HCV - No further planned GI interventions, will sign off case. Please reconsult as necessary, thank you.
[2018-02-15] MEDS: Methadone 40 mg Tab PO SCH (14:55)
[2018-02-15] MEDS: Multiple Vitamins Tab PO SCH (14:55)
[2018-02-15] MEDS: POLYETHYLENE GLYCOL 3350 17 GM/Dose PACKET PO SCH (14:55)
[2018-02-15] MEDS: Pantoprazole 40 mg EC Tab PO SCH (14:57)
--- NOTE | 2018-02-16 07:45 | CP.PCM.PN ---
<Tanvir Weinstein - Last Filed: 02/16/18 16:05> Subjective - Date & Time of Evaluation Date of Evaluation: 02/16/18 Time of Evaluation: 07:42 - Subjective Subjective: PGY-1 Medicine Progress Note for Dr. Caceres Patient seen and examined at bedside this AM, resting comfortably and in no acute distress. Continues to have flat affect during interview. Denies having BM. No fevers/chill, nausea/vomiting/diarrhea, headaches, dizziness, chest pain , palpitation, sob, cough. No other acute complaints. Objective - Vital Signs/Intake and Output Vital Signs (last 24 hours): Temp Pulse Resp BP Pulse Ox 98.0 F 93 H 20 133/87 97 02/15/18 23:45 02/15/18 23:45 02/15/18 23:45 02/15/18 23:45 02/15/18 23:45 Intake and Output: 02/16/18 02/16/18 06:59 18:59 Intake Total 320 Output Total 100 Balance 220 - Medications Medications: Current Medications Amlodipine Besylate (Norvasc) 10 mg PO DAILY [facility] Last Admin: 02/15/18 14:55 Dose: 10 mg Clonidine HCl (Catapres) 0.1 mg PO Q8 PRN PRN Reason: alcohol withdrawal Last Admin: 02/13/18 23:53 Dose: 0.1 mg Ergocalciferol (Drisdol 50,000 Intl Units Cap) 1 cap PO Q7D [facility] Last Admin: 02/12/18 20:29 Dose: 1 cap Fluconazole (Diflucan) 100 mg PO DAILY [facility] PRN Reason: Protocol Last Admin: 02/15/18 15:11 Dose: 100 mg Folic Acid (Folic Acid) 1 mg PO DAILY [facility] Last Admin: 02/15/18 14:55 Dose: 1 mg Lorazepam (Ativan) 1 mg PO Q4H PRN PRN Reason: Symptoms of alcohol withdrawl Last Admin: 02/11/18 21:16 Dose: 1 mg Methadone HCl (Methadose) 40 mg PO DAILY [facility] Last Admin: 02/15/18 14:55 Dose: 40 mg Methadone HCl (Methadone) 10 mg PO DAILY [facility] Last Admin: 02/15/18 14:55 Dose: 10 mg Multivitamins (Hexavitamin) 1 tab PO DAILY [facility] Last Admin: 02/15/18 14:55 Dose: 1 tab Nicotine (Nicoderm Cq) 1 patch TD DAILY [facility] Last Admin: 02/15/18 14:55 Dose: 1 patch Pantoprazole Sodium (Protonix Ec Tab) 40 mg PO ACB [facility] Last Admin: 02/15/18 14:57 Dose: 40 mg Polyethylene Glycol (Miralax) 17 gm PO DAILY [facility] Last Admin: 02/15/18 14:55 Dose: 17 gm Thiamine HCl (Vitamin B1 Tab) 100 mg PO DAILY [facility] Last Admin: 02/15/18 14:54 Dose: 100 mg Trazodone HCl (Desyrel) 50 mg PO HS PRN PRN Reason: Insomnia Last Admin: 02/15/18 21:47 Dose: 50 mg - Labs Labs: 02/15/18 07:44 02/15/18 07:44 PT 11.5 SECONDS (9.7-12.2) 02/15/18 07:44 INR 1.1 02/15/18 07:44 - Constitutional Appears: Non-toxic, No Acute Distress, Cachectic - Head Exam Additional comments: R forehead hematoma - Eye Exam Eye Exam: EOMI, Normal appearance - ENT Exam ENT Exam: Mucous Membranes Moist, Normal Exam - Neck Exam Neck Exam: Normal Inspection. absent: Lymphadenopathy, Tenderness - Respiratory Exam Respiratory Exam: Clear to Ausculation Bilateral, NORMAL BREATHING PATTERN. absent: Rales, Rhonchi, Wheezes, Stridor - Cardiovascular Exam Cardiovascular Exam: REGULAR RHYTHM, +S1, +S2 - GI/Abdominal Exam GI & Abdominal Exam: Soft, Normal Bowel Sounds. absent: Distended, Firm, Guarding, Rigid, Tenderness, Mass, Rebound - Extremities Exam Extremities Exam: Normal Capillary Refill, Normal Inspection. absent: Joint Swelling, Pedal Edema, Tenderness - Back Exam Back Exam: NORMAL INSPECTION - Neurological Exam Neurological Exam: Alert, Awake, Oriented x3 - Psychiatric Exam Psychiatric exam: Flat Affect - Skin Skin Exam: Dry, Intact, Normal Color, Warm Assessment and Plan - Assessment and Plan (Free Text) Assessment: 63 yo M with PMHx of HTN, iron deficient anemia, anemia, alcohol abuse, and heroin abuse presenting from detox unit s/p fall resulting in a R sided hematoma to frontal scalp: ETOH abuse Chronic pancreatitis HTN Opiate abuse on methadone Weight loss Dysphagia s/p EGD (02/15) showing lauren esophagitis, gastritis. Plan: Cachexia -pt looks emaciated on physical exam -possibly secondary chronic alcohol abuse -Folic acid, thiamine, multivitamin daily -NS at 75 cc/hour -B12: 622 (02/12) -Vitamin D: 13.6 (02/12) Imaging: -CT chest/abd/pelvis w/ IV contrast (02/12): chronic pancreatitis; pancreatic duct, intrahepatic and extrahepatic biliary dilatation, no mass; nodules present in the left lower lobe and right middle lobe, mid esophagus appears to have debris with questionable wall thickening, and 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 tiny pelvic free fluid. Abd U/S (02/12): Increased echogenicity of hepatic parenchymal cortex suggestive for fatty liver infiltration or hepatic parenchymal disease Abd XR (02/16): no obstruction, no distention, no free air in bowel GI recs (Dr. Valderrama) appreciated -continue to monitor for signs of withdrawal -pancreatic protocol CT (02/14): Intrahepatic biliary ductal dilatation, CBD dilated at 8 mm. Coarse calcifications consistent with chronic pancreatitis. Pancreatic duct dilated, measuring 5mm. Thick-walled distal esophagus w/ evidence of GERD -EGD (02/15): findings suggestive of lauren esophagitis, gastritis -Begin PPI and diflucan therapy for esophageal candidiasis -f/u EGD biopsy results -Patient would benefit from outpatient colonoscopy given unexplained weight loss and further follow up of chronic HCV - cleared from GI perspective Medications -Protonix 40 mg PO ACB -Diflucan 100 mg PO daily x 1 month Alcohol abuse/ heroine abuse - C/w psych orders: -Trazodone 50 mg PO HS PRN -Methadone 50mg PO daily -Lorazepam 1mg PO Q6 -Lorazepam 1mg PO Q4H PRN - aspiration precautions, seizure precautions, fall precautions - head of bed @45 degrees Hematoma, head - Due to code star on 02/11 - CT head (02/11): Trauma limited to the right frontal scalp hematoma/ laceration. No acute intracranial abnormality. Atrophy. Chronic microvascular ischemic changes. Punctate left basal ganglia calcification. Punctate hypodensity in the right basal ganglia suggestive for a prominent perivascular space versus small lacunar infarct. Small focal hypodensity seen at the level of the john on series 4, image 16 on the right suggestive for a small chronic/ lacunar infarct. If symptoms persist, consider correlation with MRI. - repeat CT head (02/13): No acute intracranial abnormality Palpitations -TSH: 2.25 (02/12) -Free T4: 1.04 (02/12) -EKG (02/12): Sinus bradycardia with sinus arrhythmia, possible left atrial enlargement, and left ventricular hypertrophy -on tele monitor Hypertension - Amlodipine increased to 10 mg PO daily Dehydration - Gentle hydration NS @ 75ml/hr Elevated LFTS - Pt is chronic ETOH consumer, heroin user -Hep C Ab reactive -Per PMD--[facility] at [phone] -Pt was found to be reactive for Hep C in 2016 but never f/u with ID. -Abd US (02/12): Increased echogenicity of hepatic parenchymal cortex suggestive for fatty liver infiltration or hepatic parenchymal disease. Ppx, Diet, Disposition -DVT - SCDs, out of bed to chair -VTE therapy contraindicated 2/2 recent head trauma -ROSALIND Protonix 40 mg -Regular diet -f/u PT/OT recs Case discussed with Dr. Nicki Weinstein DO, PGY-1 <Moreno Caceres - Last Filed: 02/17/18 16:15> Objective - Vital Signs/Intake and Output Vital Signs (last 24 hours): Temp Pulse Resp BP Pulse Ox 97.7 F 78 20 113/76 98 02/17/18 08:25 02/17/18 08:25 02/17/18 08:25 02/17/18 08:25 02/17/18 08:25 Intake and Output: 02/17/18 02/17/18 06:59 18:59 Intake Total 480 Output Total 0 Balance 480 - Medications Medications: Current Medications Amlodipine Besylate (Norvasc) 10 mg PO DAILY [facility] Last Admin: 02/17/18 09:24 Dose: 10 mg Ergocalciferol (Drisdol 50,000 Intl Units Cap) 1 cap PO Q7D [facility] Last Admin: 02/12/18 20:29 Dose: 1 cap Fluconazole (Diflucan) 100 mg PO DAILY [facility] PRN Reason: Protocol Last Admin: 02/17/18 09:24 Dose: 100 mg Folic Acid (Folic Acid) 1 mg PO DAILY [facility] Last Admin: 02/17/18 09:25 Dose: 1 mg Methadone HCl (Methadose) 40 mg PO DAILY [facility] Last Admin: 02/17/18 09:25 Dose: 40 mg Methadone HCl (Methadone) 10 mg PO DAILY [facility] Last Admin: 02/17/18 09:25 Dose: 10 mg Multivitamins (Hexavitamin) 1 tab PO DAILY [facility] Last Admin: 02/17/18 09:24 Dose: 1 tab Nicotine (Nicoderm Cq) 1 patch TD DAILY [facility] Last Admin: 02/17/18 09:25 Dose: 1 patch Pantoprazole Sodium (Protonix Ec Tab) 40 mg PO ACB [facility] Last Admin: 02/17/18 09:24 Dose: 40 mg Polyethylene Glycol (Miralax) 17 gm PO BID [facility] Last Admin: 02/17/18 09:24 Dose: 17 gm Thiamine HCl (Vitamin B1 Tab) 100 mg PO DAILY [facility] Last Admin: 02/17/18 09:24 Dose: 100 mg Trazodone HCl (Desyrel) 50 mg PO HS PRN PRN Reason: Insomnia Last Admin: 02/16/18 20:37 Dose: 50 mg - Labs Labs: 02/17/18 07:48 02/17/18 07:48 PT 11.5 SECONDS (9.7-12.2) 02/15/18 07:44 INR 1.1 02/15/18 07:44 Attending/Attestation - Attestation I have personally seen and examined this patient.: Yes I have fully participated in the care of the patient.: Yes I have reviewed all pertinent clinical information, including history, physical exam and plan: Yes Notes (Text): Seen and examined by me.Patient was not cooperating for enema as per RN Patient was explained about his fecal impaction . We will try laxatives and fleet enema. Abdominal x ray shows large amount of stool through out the colon We will discharge if his fecal impaction resolved. D/W SW about possible discharge tomorrow s/p EGD shows esophageal Lauren. Started on diflucan Spoke to Nutrition Aide fellow Dr Hager. Lindsey for a month and repeat EGD an an out patient continue protonix,follow Biopsy report patinet will be discharge to a rehab,needs out patient colonoscopy Assessment and the plan discussed with the resident. I agree with the documentation
[2018-02-16] MEDS: Pantoprazole 40 mg EC Tab PO SCH (08:10)
[2018-02-16 09:03] LABS: BASO % 0.7 % (0.0-2.0); EOS # 0.2 K/uL (0.0-0.7); EOS % 5.4 % (0.0-4.0); HEMOGLOBIN 11.3 g/dL (12.0-18.0); LYMPH # 1.2 K/uL (1.0-4.3); LYMPH % 26.6 % (20.0-40.0); MEAN CELL VOLUME 90.7 fL (80.0-94.0); MEAN CORPUSCULAR HEMOGLOBIN 30.1 pg (27.0-31.0); MEAN CORPUSCULAR HGB CONC 33.1 g/dL (33.0-37.0); MEAN PLATELET VOLUME 9.5 fL (7.2-11.7); MONO # 0.4 K/uL (0.0-0.8); MONO % 9.3 % (0.0-10.0); NEUT # 2.6 K/uL (1.8-7.0); NRBC % 0.1 % (0.0-2.0); RBC 3.77 Mil/uL (4.40-5.90); RED CELL DISTRIBUTION WIDTH 13.7 % (11.5-14.5); WHITE BLOOD COUNT 4.4 K/uL (4.8-10.8)
[2018-02-16] MEDS: Multiple Vitamins Tab PO SCH (09:24)
[2018-02-16] MEDS: POLYETHYLENE GLYCOL 3350 17 GM/Dose PACKET PO SCH ×2 (09:25→17:33)
[2018-02-16 09:32] LABS: ALBUMIN 3.6 g/dL (3.5-5.0); ALT/SGPT 45 U/L (21-72); AST/SGOT 50 U/L (17-59); BLOOD UREA NITROGEN 10 mg/dL (9-20); CALCIUM 9.6 mg/dl (8.6-10.4); GFR NON-AFRICAN AMERICAN > 60
[2018-02-16] MEDS: Methadone 40 mg Tab PO SCH (10:22)
[2018-02-16] MEDS ORDERED: Magnesium Citrate Oral SOL (300 ml) PO ONE ×3 (12:45→14:15)
--- NOTE | 2018-02-16 15:17 | RAD ---
Date of service: 02/16/2018 HISTORY: Constipation COMPARISON: No prior. FINDINGS: BOWEL: Normal. No obstruction. No free air. Oral contrast identified in nondistended colon. BONES: Normal. OTHER FINDINGS: None. IMPRESSION: No significant or acute findings to account for/ related to the clinical presentation.
[2018-02-16 17:29] VITALS: RESP 20
[2018-02-17] MEDS ORDERED: Bisacodyl 5mg EC Tab PO ONE (05:00)
[2018-02-17 08:08] LABS: BASO % 0.4 % (0.0-2.0); EOS # 0.2 K/uL (0.0-0.7); EOS % 2.7 % (0.0-4.0); HEMOGLOBIN 11.2 g/dL (12.0-18.0); LYMPH # 1.3 K/uL (1.0-4.3); LYMPH % 14.5 % (20.0-40.0); MEAN CORPUSCULAR HEMOGLOBIN 30.1 pg (27.0-31.0); MEAN CORPUSCULAR HGB CONC 33.4 g/dL (33.0-37.0); MEAN PLATELET VOLUME 9.9 fL (7.2-11.7); NEUT # 6.2 K/uL (1.8-7.0); NEUT % 71.4 % (50.0-75.0); NRBC % 0.1 % (0.0-2.0); RBC 3.73 Mil/uL (4.40-5.90); RED CELL DISTRIBUTION WIDTH 13.7 % (11.5-14.5)
[2018-02-17 08:11] LABS: WHITE BLOOD COUNT 8.6 K/uL (4.8-10.8)
[2018-02-17 08:44] LABS: ALBUMIN 3.7 g/dL (3.5-5.0); ALT/SGPT 44 U/L (21-72); AST/SGOT 49 U/L (17-59); BLOOD UREA NITROGEN 9 mg/dL (9-20); CALCIUM 9.6 mg/dl (8.6-10.4); GFR NON-AFRICAN AMERICAN > 60
[2018-02-17] MEDS: Multiple Vitamins Tab PO SCH (09:24)
[2018-02-17] MEDS: Pantoprazole 40 mg EC Tab PO SCH (09:24)
[2018-02-17] MEDS: POLYETHYLENE GLYCOL 3350 17 GM/Dose PACKET PO SCH ×2 (09:24→17:45)
[2018-02-17] MEDS: Methadone 40 mg Tab PO SCH (09:25)
--- NOTE | 2018-02-17 09:54 | RAD ---
Date of service: 02/17/2018 HISTORY: constipation COMPARISON: 02/16/2018. FINDINGS: BOWEL: There is moderate amount of stool scattered in the colon. The bowel gas pattern is nonspecific. BONES: Multilevel degenerative changes. OTHER FINDINGS: None. IMPRESSION: Moderate stool burden as described above. Nonobstructive bowel-gas pattern.
--- NOTE | 2018-02-17 11:32 | CP.PCM.PN ---
<Tanvir Weinstein - Last Filed: 02/17/18 16:08> Subjective - Date & Time of Evaluation Date of Evaluation: 02/17/18 Time of Evaluation: 11:30 - Subjective Subjective: PGY-1 Medicine Progress Note for Dr. Caceres Patient seen and examined at bedside this AM, resting comfortably and in no acute distress. Patient had BM yesterday, says his abdominal pain feels better. Pt is tolerating diet well. No other acute complaints. No headaches, dizziness, chest pain, palpitations, sob, cough, abdominal pain, nausea/vomiting/diarrhea, constipation, dysuria, or changes in stool. Objective - Vital Signs/Intake and Output Vital Signs (last 24 hours): Temp Pulse Resp BP Pulse Ox 97.7 F 78 20 113/76 98 02/17/18 08:25 02/17/18 08:25 02/17/18 08:25 02/17/18 08:25 02/17/18 08:25 Intake and Output: 02/17/18 02/17/18 06:59 18:59 Intake Total 480 Output Total 0 Balance 480 - Medications Medications: Current Medications Amlodipine Besylate (Norvasc) 10 mg PO DAILY [facility] Last Admin: 02/17/18 09:24 Dose: 10 mg Ergocalciferol (Drisdol 50,000 Intl Units Cap) 1 cap PO Q7D [facility] Last Admin: 02/12/18 20:29 Dose: 1 cap Fluconazole (Diflucan) 100 mg PO DAILY [facility] PRN Reason: Protocol Last Admin: 02/17/18 09:24 Dose: 100 mg Folic Acid (Folic Acid) 1 mg PO DAILY [facility] Last Admin: 02/17/18 09:25 Dose: 1 mg Methadone HCl (Methadose) 40 mg PO DAILY [facility] Last Admin: 02/17/18 09:25 Dose: 40 mg Methadone HCl (Methadone) 10 mg PO DAILY [facility] Last Admin: 02/17/18 09:25 Dose: 10 mg Multivitamins (Hexavitamin) 1 tab PO DAILY [facility] Last Admin: 02/17/18 09:24 Dose: 1 tab Nicotine (Nicoderm Cq) 1 patch TD DAILY [facility] Last Admin: 02/17/18 09:25 Dose: 1 patch Pantoprazole Sodium (Protonix Ec Tab) 40 mg PO ACB [facility] Last Admin: 02/17/18 09:24 Dose: 40 mg Polyethylene Glycol (Miralax) 17 gm PO BID [facility] Last Admin: 02/17/18 09:24 Dose: 17 gm Thiamine HCl (Vitamin B1 Tab) 100 mg PO DAILY [facility] Last Admin: 02/17/18 09:24 Dose: 100 mg Trazodone HCl (Desyrel) 50 mg PO HS PRN PRN Reason: Insomnia Last Admin: 02/16/18 20:37 Dose: 50 mg - Labs Labs: 02/17/18 07:48 02/17/18 07:48 PT 11.5 SECONDS (9.7-12.2) 02/15/18 07:44 INR 1.1 02/15/18 07:44 - Constitutional Appears: Non-toxic, Cachectic - Head Exam Additional comments: R forehead hematoma - Eye Exam Eye Exam: EOMI, Normal appearance Pupil Exam: NORMAL ACCOMODATION - ENT Exam ENT Exam: Mucous Membranes Moist, Normal Exam - Neck Exam Neck Exam: Full ROM, Normal Inspection. absent: Lymphadenopathy, Tenderness - Respiratory Exam Respiratory Exam: Clear to Ausculation Bilateral, NORMAL BREATHING PATTERN. absent: Rales, Rhonchi, Wheezes, Stridor - Cardiovascular Exam Cardiovascular Exam: REGULAR RHYTHM, +S1, +S2 - GI/Abdominal Exam GI & Abdominal Exam: Soft, Normal Bowel Sounds. absent: Distended, Firm, Guarding, Rigid, Tenderness, Mass, Rebound - Extremities Exam Extremities Exam: Normal Capillary Refill, Normal Inspection. absent: Pedal Edema, Tenderness - Back Exam Back Exam: NORMAL INSPECTION - Neurological Exam Neurological Exam: Alert, Awake, Oriented x3 - Psychiatric Exam Psychiatric exam: Normal Affect, Normal Mood - Skin Skin Exam: Dry, Intact, Normal Color, Warm Assessment and Plan - Assessment and Plan (Free Text) Assessment: 63 yo M with PMHx of HTN, iron deficient anemia, anemia, alcohol abuse, and heroin abuse presenting from detox unit s/p fall resulting in a R sided hematoma to frontal scalp: ETOH abuse Chronic pancreatitis HTN Opiate abuse on methadone Weight loss Dysphagia Plan: Cachexia -pt looks emaciated on physical exam -possibly secondary chronic alcohol abuse -Folic acid, thiamine, multivitamin daily -NS at 75 cc/hour -B12: 622 (02/12) -Vitamin D: 13.6 (02/12) Imaging: -CT chest/abd/pelvis w/ IV contrast (02/12): chronic pancreatitis; pancreatic duct, intrahepatic and extrahepatic biliary dilatation, no mass; nodules present in the left lower lobe and right middle lobe, mid esophagus appears to have debris with questionable wall thickening, and 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 tiny pelvic free fluid. Abd U/S (02/12): Increased echogenicity of hepatic parenchymal cortex suggestive for fatty liver infiltration or hepatic parenchymal disease Abd XR (02/17): moderate stool burden GI recs (Dr. Valderrama) appreciated -continue to monitor for signs of withdrawal -pancreatic protocol CT (02/14): Intrahepatic biliary ductal dilatation, CBD dilated at 8 mm. Coarse calcifications consistent with chronic pancreatitis. Pancreatic duct dilated, measuring 5mm. Thick-walled distal esophagus w/ evidence of GERD -keep NPO -plan for EGD today to rule out esophageal neoplasm given dysphagia and abnormality noted on CT -additional outpatient follow up for HCV, however no liver lesion noted on CT and he is currently not a candidate for treatment given ongoing ETOH abuse Alcohol abuse/ heroine abuse - C/w psych orders: -Trazodone 50 mg PO HS PRN -Methadone 50mg PO daily -Lorazepam 1mg PO Q6 -Lorazepam 1mg PO Q4H PRN - aspiration precautions, seizure precautions, fall precautions - head of bed @45 degrees Hematoma, head - Due to code star on 02/11 - CT head (02/11): Trauma limited to the right frontal scalp hematoma/ laceration. No acute intracranial abnormality. Atrophy. Chronic microvascular ischemic changes. Punctate left basal ganglia calcification. Punctate hypodensity in the right basal ganglia suggestive for a prominent perivascular space versus small lacunar infarct. Small focal hypodensity seen at the level of the john on series 4, image 16 on the right suggestive for a small chronic/ lacunar infarct. If symptoms persist, consider correlation with MRI. - repeat CT head (02/13): No acute intracranial abnormality Palpitations -TSH: 2.25 (02/12) -Free T4: 1.04 (02/12) -EKG (02/12): Sinus bradycardia with sinus arrhythmia, possible left atrial enlargement, and left ventricular hypertrophy -on tele monitor Hypertension - Amlodipine increased to 10 mg PO daily Dehydration - Gentle hydration NS @ 75ml/hr Elevated LFTS - Pt is chronic ETOH consumer, heroin user -Hep C Ab reactive -Per PMD--[employer] at [phone] -Pt was found to be reactive for Hep C in 2016 but never f/u with ID. -Abd US (02/12): Increased echogenicity of hepatic parenchymal cortex suggestive for fatty liver infiltration or hepatic parenchymal disease. Ppx, Diet, Disposition -DVT - SCDs, out of bed to chair -VTE therapy contraindicated 2/2 recent head trauma -GI not indicated -Regular Diet -Dispo: Patient to be d/c'd to [facility] with methadone maintenance dose. Awaiting finalization from social work. Case discussed with Dr. Nicki Weinstein DO, PGY-1 <Moreno Caceres - Last Filed: 02/17/18 16:18> Objective - Vital Signs/Intake and Output Vital Signs (last 24 hours): Temp Pulse Resp BP Pulse Ox 97.7 F 78 20 113/76 98 02/17/18 08:25 02/17/18 08:25 02/17/18 08:25 02/17/18 08:25 02/17/18 08:25 Intake and Output: 02/17/18 02/17/18 06:59 18:59 Intake Total 480 Output Total 0 Balance 480 - Medications Medications: Current Medications Amlodipine Besylate (Norvasc) 10 mg PO DAILY [facility] Last Admin: 02/17/18 09:24 Dose: 10 mg Ergocalciferol (Drisdol 50,000 Intl Units Cap) 1 cap PO Q7D [facility] Last Admin: 02/12/18 20:29 Dose: 1 cap Fluconazole (Diflucan) 100 mg PO DAILY [facility] PRN Reason: Protocol Last Admin: 02/17/18 09:24 Dose: 100 mg Folic Acid (Folic Acid) 1 mg PO DAILY [facility] Last Admin: 02/17/18 09:25 Dose: 1 mg Methadone HCl (Methadose) 40 mg PO DAILY [facility] Last Admin: 02/17/18 09:25 Dose: 40 mg Methadone HCl (Methadone) 10 mg PO DAILY [facility] Last Admin: 02/17/18 09:25 Dose: 10 mg Multivitamins (Hexavitamin) 1 tab PO DAILY [facility] Last Admin: 02/17/18 09:24 Dose: 1 tab Nicotine (Nicoderm Cq) 1 patch TD DAILY [facility] Last Admin: 02/17/18 09:25 Dose: 1 patch Pantoprazole Sodium (Protonix Ec Tab) 40 mg PO ACB [facility] Last Admin: 02/17/18 09:24 Dose: 40 mg Polyethylene Glycol (Miralax) 17 gm PO BID [facility] Last Admin: 02/17/18 09:24 Dose: 17 gm Thiamine HCl (Vitamin B1 Tab) 100 mg PO DAILY [facility] Last Admin: 02/17/18 09:24 Dose: 100 mg Trazodone HCl (Desyrel) 50 mg PO HS PRN PRN Reason: Insomnia Last Admin: 02/16/18 20:37 Dose: 50 mg - Labs Labs: 02/17/18 07:48 02/17/18 07:48 PT 11.5 SECONDS (9.7-12.2) 02/15/18 07:44 INR 1.1 02/15/18 07:44 Attending/Attestation - Attestation I have personally seen and examined this patient.: Yes I have fully participated in the care of the patient.: Yes I have reviewed all pertinent clinical information, including history, physical exam and plan: Yes Notes (Text): Seen and examined by me. Patient feels better. X ray looks better/less stool s/p EGD shows esophageal Beth. Started on diflucan Diflucan for a month and repeat EGD an an out patient continue protonix,follow Biopsy report Jayson will be discharged to a rehab,needs out patient colonoscopy. Assessment and the plan discussed with the resident. I agree with the documentation Discussed with social media marketing analyst . Working to arrange rehab placement with methadone treatment
--- NOTE | 2018-02-18 04:00 | CP.PCM.PN ---
<Darin Lazcano - Last Filed: 02/18/18 06:54> Subjective - Date & Time of Evaluation Date of Evaluation: 02/18/18 Time of Evaluation: 03:57 - Subjective Subjective: PGY-1 Medicine Progress Note for Dr. Caceres Patient seen and examined at bedside this AM, resting comfortably and in no acute distress. Patient says his abdominal pain feels better. Pt is tolerating diet well. No other acute complaints. No headaches, dizziness, chest pain, palpitations, sob, cough, abdominal pain, nausea/vomiting/diarrhea, constipation , dysuria, or changes in stool. Objective - Vital Signs/Intake and Output Vital Signs (last 24 hours): Temp Pulse Resp BP Pulse Ox 97.9 F 74 20 132/80 99 02/17/18 23:35 02/17/18 23:35 02/17/18 23:35 02/17/18 23:35 02/17/18 23:35 Intake and Output: 02/17/18 02/18/18 18:59 06:59 Intake Total 500 Balance 500 - Medications Medications: Current Medications Amlodipine Besylate (Norvasc) 10 mg PO DAILY [facility] Last Admin: 02/17/18 09:24 Dose: 10 mg Ergocalciferol (Drisdol 50,000 Intl Units Cap) 1 cap PO Q7D [facility] Last Admin: 02/12/18 20:29 Dose: 1 cap Fluconazole (Diflucan) 100 mg PO DAILY [facility] PRN Reason: Protocol Last Admin: 02/17/18 09:24 Dose: 100 mg Folic Acid (Folic Acid) 1 mg PO DAILY [facility] Last Admin: 02/17/18 09:25 Dose: 1 mg Methadone HCl (Methadose) 40 mg PO DAILY [facility] Last Admin: 02/17/18 09:25 Dose: 40 mg Methadone HCl (Methadone) 10 mg PO DAILY [facility] Last Admin: 02/17/18 09:25 Dose: 10 mg Multivitamins (Hexavitamin) 1 tab PO DAILY [facility] Last Admin: 02/17/18 09:24 Dose: 1 tab Nicotine (Nicoderm Cq) 1 patch TD DAILY [facility] Last Admin: 02/17/18 09:25 Dose: 1 patch Pantoprazole Sodium (Protonix Ec Tab) 40 mg PO ACB [facility] Last Admin: 02/17/18 09:24 Dose: 40 mg Polyethylene Glycol (Miralax) 17 gm PO BID [facility] Last Admin: 02/17/18 17:45 Dose: 17 gm Thiamine HCl (Vitamin B1 Tab) 100 mg PO DAILY [facility] Last Admin: 02/17/18 09:24 Dose: 100 mg Trazodone HCl (Desyrel) 50 mg PO HS PRN PRN Reason: Insomnia Last Admin: 02/16/18 20:37 Dose: 50 mg - Labs Labs: 02/17/18 07:48 02/17/18 07:48 PT 11.5 SECONDS (9.7-12.2) 02/15/18 07:44 INR 1.1 02/15/18 07:44 - Constitutional Appears: Cachectic - Head Exam Additional comments: R forehead hematoma - Eye Exam Eye Exam: EOMI, Normal appearance Pupil Exam: NORMAL ACCOMODATION - ENT Exam ENT Exam: Mucous Membranes Moist - Neck Exam Neck Exam: Full ROM, Normal Inspection. absent: Lymphadenopathy, Tenderness - Respiratory Exam Respiratory Exam: Clear to Ausculation Bilateral, NORMAL BREATHING PATTERN. absent: Rales, Rhonchi, Wheezes, Stridor - GI/Abdominal Exam GI & Abdominal Exam: Soft, Normal Bowel Sounds. absent: Guarding, Tenderness, Rebound - Back Exam Back Exam: NORMAL INSPECTION - Neurological Exam Neurological Exam: Alert, Awake, Oriented x3 - Skin Skin Exam: Dry, Intact, Normal Color, Warm Assessment and Plan - Assessment and Plan (Free Text) Assessment: Cachexia -pt looks emaciated on physical exam -possibly secondary chronic alcohol abuse -Folic acid, thiamine, multivitamin daily -NS at 75 cc/hour -B12: 622 (02/12) -Vitamin D: 13.6 (02/12) Imaging: -CT chest/abd/pelvis w/ IV contrast (02/12): chronic pancreatitis; pancreatic duct, intrahepatic and extrahepatic biliary dilatation, no mass; nodules present in the left lower lobe and right middle lobe, mid esophagus appears to have debris with questionable wall thickening, and 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 tiny pelvic free fluid. Abd U/S (02/12): Increased echogenicity of hepatic parenchymal cortex suggestive for fatty liver infiltration or hepatic parenchymal disease Abd XR (02/17): moderate stool burden GI recs (Dr. Valderrama) appreciated -continue to monitor for signs of withdrawal -pancreatic protocol CT (02/14): Intrahepatic biliary ductal dilatation, CBD dilated at 8 mm. Coarse calcifications consistent with chronic pancreatitis. Pancreatic duct dilated, measuring 5mm. Thick-walled distal esophagus w/ evidence of GERD -keep NPO -plan for EGD today to rule out esophageal neoplasm given dysphagia and abnormality noted on CT -additional outpatient follow up for HCV, however no liver lesion noted on CT and he is currently not a candidate for treatment given ongoing ETOH abuse Alcohol abuse/ heroine abuse - C/w psych orders: -Trazodone 50 mg PO HS PRN -Methadone 50mg PO daily -Lorazepam 1mg PO Q6 -Lorazepam 1mg PO Q4H PRN - aspiration precautions, seizure precautions, fall precautions - head of bed @45 degrees Hematoma, head - Due to code star on 02/11 - CT head (02/11): Trauma limited to the right frontal scalp hematoma/ laceration. No acute intracranial abnormality. Atrophy. Chronic microvascular ischemic changes. Punctate left basal ganglia calcification. Punctate hypodensity in the right basal ganglia suggestive for a prominent perivascular space versus small lacunar infarct. Small focal hypodensity seen at the level of the john on series 4, image 16 on the right suggestive for a small chronic/ lacunar infarct. If symptoms persist, consider correlation with MRI. - repeat CT head (02/13): No acute intracranial abnormality Palpitations -TSH: 2.25 (02/12) -Free T4: 1.04 (02/12) -EKG (02/12): Sinus bradycardia with sinus arrhythmia, possible left atrial enlargement, and left ventricular hypertrophy -on tele monitor Hypertension - Amlodipine increased to 10 mg PO daily Dehydration - Improved, fluids held Elevated LFTS - Pt is chronic ETOH consumer, heroin user -Hep C Ab reactive -Per PMD--[employer] at [phone] -Pt was found to be reactive for Hep C in 2016 but never f/u with ID. -Abd US (02/12): Increased echogenicity of hepatic parenchymal cortex suggestive for fatty liver infiltration or hepatic parenchymal disease. Ppx, Diet, Disposition -DVT - SCDs, out of bed to chair -VTE therapy contraindicated 2/2 recent head trauma -GI not indicated -Regular Diet -Dispo: Patient to be d/c'd to [facility] [place] with methadone maintenance dose. Awaiting finalization from social work. Case discussed with Dr. Nicki Lazcano, PGY-1 <Moreno Caceres - Last Filed: 02/18/18 14:23> Objective - Vital Signs/Intake and Output Vital Signs (last 24 hours): Temp Pulse Resp BP Pulse Ox 97.9 F 74 20 132/80 99 02/17/18 23:35 02/17/18 23:35 02/17/18 23:35 02/17/18 23:35 02/17/18 23:35 Intake and Output: 02/18/18 02/18/18 06:59 18:59 Intake Total 500 Balance 500 - Medications Medications: Current Medications Amlodipine Besylate (Norvasc) 10 mg PO DAILY [facility] Last Admin: 02/18/18 11:07 Dose: 10 mg Calcium Acetate (Phoslo) [facility] Stop: 02/19/18 07:00 Last Admin: 02/18/18 14:14 Dose: Not Given Ergocalciferol (Drisdol 50,000 Intl Units Cap) 1 cap PO Q7D [facility] Last Admin: 02/12/18 20:29 Dose: 1 cap Fluconazole (Diflucan) 100 mg PO DAILY [facility] PRN Reason: Protocol Last Admin: 02/18/18 11:08 Dose: 100 mg Folic Acid (Folic Acid) 1 mg PO DAILY [facility] Last Admin: 02/18/18 11:08 Dose: 1 mg Methadone HCl (Methadose) 40 mg PO DAILY [facility] Last Admin: 02/18/18 11:08 Dose: 40 mg Methadone HCl (Methadone) 10 mg PO DAILY [facility] Last Admin: 02/18/18 11:07 Dose: 10 mg Multivitamins (Hexavitamin) 1 tab PO DAILY [facility] Last Admin: 02/18/18 11:08 Dose: 1 tab Nicotine (Nicoderm Cq) 1 patch TD DAILY [facility] Last Admin: 02/18/18 11:08 Dose: 1 patch Pantoprazole Sodium (Protonix Ec Tab) 40 mg PO ACB [facility] Last Admin: 02/18/18 06:49 Dose: 40 mg Polyethylene Glycol (Miralax) 17 gm PO BID [facility] Last Admin: 02/18/18 11:08 Dose: 17 gm Thiamine HCl (Vitamin B1 Tab) 100 mg PO DAILY [facility] Last Admin: 02/18/18 11:08 Dose: 100 mg Trazodone HCl (Desyrel) 50 mg PO HS PRN PRN Reason: Insomnia Last Admin: 02/16/18 20:37 Dose: 50 mg - Labs Labs: 02/18/18 06:55 02/18/18 06:55 PT 11.5 SECONDS (9.7-12.2) 02/15/18 07:44 INR 1.1 02/15/18 07:44 Attending/Attestation - Attestation I have personally seen and examined this patient.: Yes I have fully participated in the care of the patient.: Yes I have reviewed all pertinent clinical information, including history, physical exam and plan: Yes Notes (Text): Seen and examined.His appetite is good,Denies discomfort. Continue lactulose,out patient GI for repeat EGD and colonoscopy I agree with the documentation of the resident
[2018-02-18] MEDS: Pantoprazole 40 mg EC Tab PO SCH (06:49)
[2018-02-18 07:02] LABS: BASO % 0.5 % (0.0-2.0); EOS # 0.3 K/uL (0.0-0.7); EOS % 4.6 % (0.0-4.0); HEMOGLOBIN 10.7 g/dL (12.0-18.0); LYMPH # 1.8 K/uL (1.0-4.3); MEAN CELL VOLUME 90.2 fL (80.0-94.0); MEAN CORPUSCULAR HEMOGLOBIN 29.7 pg (27.0-31.0); MEAN CORPUSCULAR HGB CONC 32.9 g/dL (33.0-37.0); MEAN PLATELET VOLUME 9.4 fL (7.2-11.7); MONO # 0.8 K/uL (0.0-0.8); MONO % 10.8 % (0.0-10.0); NEUT # 4.3 K/uL (1.8-7.0); NEUT % 59.1 % (50.0-75.0); RBC 3.61 Mil/uL (4.40-5.90); RED CELL DISTRIBUTION WIDTH 13.7 % (11.5-14.5); WHITE BLOOD COUNT 7.2 K/uL (4.8-10.8)
[2018-02-18 07:26] LABS: ALB/GLOB RATIO 1.1 (1.0-2.1); ALBUMIN 3.4 g/dL (3.5-5.0); ALT/SGPT 41 U/L (21-72); AST/SGOT 38 U/L (17-59); BLOOD UREA NITROGEN 16 mg/dL (9-20); CALCIUM 9.2 mg/dl (8.6-10.4); GFR NON-AFRICAN AMERICAN > 60
[2018-02-18] MEDS: POLYETHYLENE GLYCOL 3350 17 GM/Dose PACKET PO SCH ×2 (11:08→17:24)
[2018-02-18] MEDS: Methadone 40 mg Tab PO SCH (11:08)
[2018-02-18] MEDS: Multiple Vitamins Tab PO SCH (11:08)
--- NOTE | 2018-02-19 00:45 | CP.PCM.PN ---
<Darin Lazcano - Last Filed: 02/19/18 00:44> Subjective - Date & Time of Evaluation Date of Evaluation: 02/19/18 Time of Evaluation: 00:44 - Subjective Subjective: PGY-1 Medicine Progress Note for Dr. Caceres Patient seen and examined at bedside this AM, resting comfortably and in no acute distress. Patient says his abdominal pain feels better. Pt is tolerating diet well. No other acute complaints. No headaches, dizziness, chest pain, palpitations, sob, cough, abdominal pain, nausea/vomiting/diarrhea, constipation , dysuria, or changes in stool. Objective - Vital Signs/Intake and Output Vital Signs (last 24 hours): Temp Pulse Resp BP Pulse Ox 98.5 F 89 20 129/84 99 02/19/18 00:00 02/19/18 00:00 02/19/18 00:00 02/19/18 00:00 02/19/18 00:00 Intake and Output: 02/18/18 02/19/18 18:59 06:59 Intake Total 800 Balance 800 - Medications Medications: Current Medications Amlodipine Besylate (Norvasc) 10 mg PO DAILY [facility] Last Admin: 02/18/18 11:07 Dose: 10 mg Calcium Acetate (Phoslo) 667 mg PO BIDCC [facility] Stop: 02/19/18 07:00 Last Admin: 02/18/18 17:24 Dose: 667 mg Ergocalciferol (Drisdol 50,000 Intl Units Cap) 1 cap PO Q7D [facility] Last Admin: 02/12/18 20:29 Dose: 1 cap Fluconazole (Diflucan) 100 mg PO DAILY [facility] PRN Reason: Protocol Last Admin: 02/18/18 11:08 Dose: 100 mg Folic Acid (Folic Acid) 1 mg PO DAILY [facility] Last Admin: 02/18/18 11:08 Dose: 1 mg Methadone HCl (Methadose) 40 mg PO DAILY [facility] Last Admin: 02/18/18 11:08 Dose: 40 mg Methadone HCl (Methadone) 10 mg PO DAILY [facility] Last Admin: 02/18/18 11:07 Dose: 10 mg Multivitamins (Hexavitamin) 1 tab PO DAILY [facility] Last Admin: 02/18/18 11:08 Dose: 1 tab Nicotine (Nicoderm Cq) 1 patch TD DAILY [facility] Last Admin: 02/18/18 11:08 Dose: 1 patch Pantoprazole Sodium (Protonix Ec Tab) 40 mg PO ACB [facility] Last Admin: 02/18/18 06:49 Dose: 40 mg Polyethylene Glycol (Miralax) 17 gm PO BID [facility] Last Admin: 02/18/18 17:24 Dose: 17 gm Thiamine HCl (Vitamin B1 Tab) 100 mg PO DAILY [facility] Last Admin: 02/18/18 11:08 Dose: 100 mg Trazodone HCl (Desyrel) 50 mg PO HS PRN PRN Reason: Insomnia Last Admin: 02/16/18 20:37 Dose: 50 mg - Labs Labs: 02/18/18 06:55 02/18/18 06:55 PT 11.5 SECONDS (9.7-12.2) 02/15/18 07:44 INR 1.1 02/15/18 07:44 - Head Exam Head Exam: ATRAUMATIC, NORMAL INSPECTION - Eye Exam Eye Exam: EOMI, Normal appearance - ENT Exam ENT Exam: Mucous Membranes Moist, Normal Exam - Cardiovascular Exam Cardiovascular Exam: REGULAR RHYTHM, RRR, +S1, +S2 - GI/Abdominal Exam GI & Abdominal Exam: Soft. absent: Tenderness - Extremities Exam Extremities Exam: Normal Inspection. absent: Pedal Edema, Tenderness - Neurological Exam Neurological Exam: Alert, Awake, CN II-XII Intact, Oriented x3 - Skin Skin Exam: Intact, Normal Color Assessment and Plan - Assessment and Plan (Free Text) Assessment: Assessment: Cachexia -pt looks emaciated on physical exam -possibly secondary chronic alcohol abuse -Folic acid, thiamine, multivitamin daily -NS at 75 cc/hour -B12: 622 (02/12) -Vitamin D: 13.6 (02/12) Imaging: -CT chest/abd/pelvis w/ IV contrast (02/12): chronic pancreatitis; pancreatic duct, intrahepatic and extrahepatic biliary dilatation, no mass; nodules present in the left lower lobe and right middle lobe, mid esophagus appears to have debris with questionable wall thickening, and 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 tiny pelvic free fluid. Abd U/S (02/12): Increased echogenicity of hepatic parenchymal cortex suggestive for fatty liver infiltration or hepatic parenchymal disease Abd XR (02/17): moderate stool burden GI recs (Dr. Valderrama) appreciated -continue to monitor for signs of withdrawal -pancreatic protocol CT (02/14): Intrahepatic biliary ductal dilatation, CBD dilated at 8 mm. Coarse calcifications consistent with chronic pancreatitis. Pancreatic duct dilated, measuring 5mm. Thick-walled distal esophagus w/ evidence of GERD -keep NPO -plan for EGD today to rule out esophageal neoplasm given dysphagia and abnormality noted on CT -additional outpatient follow up for HCV, however no liver lesion noted on CT and he is currently not a candidate for treatment given ongoing ETOH abuse Alcohol abuse/ heroine abuse - C/w psych orders: -Trazodone 50 mg PO HS PRN -Methadone 50mg PO daily -Lorazepam 1mg PO Q6 -Lorazepam 1mg PO Q4H PRN - aspiration precautions, seizure precautions, fall precautions - head of bed @45 degrees Hematoma, head - Due to code star on 02/11 - CT head (02/11): Trauma limited to the right frontal scalp hematoma/ laceration. No acute intracranial abnormality. Atrophy. Chronic microvascular ischemic changes. Punctate left basal ganglia calcification. Punctate hypodensity in the right basal ganglia suggestive for a prominent perivascular space versus small lacunar infarct. Small focal hypodensity seen at the level of the john on series 4, image 16 on the right suggestive for a small chronic/ lacunar infarct. If symptoms persist, consider correlation with MRI. - repeat CT head (02/13): No acute intracranial abnormality Palpitations -TSH: 2.25 (02/12) -Free T4: 1.04 (02/12) -EKG (02/12): Sinus bradycardia with sinus arrhythmia, possible left atrial enlargement, and left ventricular hypertrophy -on tele monitor Hypertension - Amlodipine increased to 10 mg PO daily Dehydration - Improved, fluids held Elevated LFTS - Pt is chronic ETOH consumer, heroin user -Hep C Ab reactive -Per PMD--[place] at [phone] -Pt was found to be reactive for Hep C in 2016 but never f/u with ID. -Abd US (02/12): Increased echogenicity of hepatic parenchymal cortex suggestive for fatty liver infiltration or hepatic parenchymal disease. Ppx, Diet, Disposition -DVT - SCDs, out of bed to chair -VTE therapy contraindicated 2/2 recent head trauma -GI not indicated -Regular Diet -Dispo: Patient to be d/c'd to [facility] with methadone maintenance dose. Awaiting finalization from social work. Case discussed with Dr. Nicki Lazcano, PGY-1 <Moreno Caceres - Last Filed: 02/19/18 14:26> Objective - Vital Signs/Intake and Output Vital Signs (last 24 hours): Temp Pulse Resp BP Pulse Ox 98.5 F 84 20 119/77 98 02/19/18 07:30 02/19/18 07:30 02/19/18 07:30 02/19/18 07:30 02/19/18 07:30 Intake and Output: 02/19/18 02/19/18 06:59 18:59 Intake Total 800 240 Balance 800 240 - Medications Medications: Current Medications Amlodipine Besylate (Norvasc) 10 mg PO DAILY [facility] Last Admin: 02/19/18 09:49 Dose: 10 mg Ergocalciferol (Drisdol 50,000 Intl Units Cap) 1 cap PO Q7D [facility] Last Admin: 02/12/18 20:29 Dose: 1 cap Fluconazole (Diflucan) 100 mg PO DAILY [facility] PRN Reason: Protocol Last Admin: 02/19/18 12:07 Dose: 100 mg Folic Acid (Folic Acid) 1 mg PO DAILY [facility] Last Admin: 02/19/18 09:49 Dose: 1 mg Methadone HCl (Methadose) 40 mg PO DAILY [facility] Last Admin: 02/19/18 09:48 Dose: 40 mg Methadone HCl (Methadone) 10 mg PO DAILY [facility] Last Admin: 02/19/18 09:48 Dose: 10 mg Multivitamins (Hexavitamin) 1 tab PO DAILY [facility] Last Admin: 02/19/18 09:48 Dose: 1 tab Nicotine (Nicoderm Cq) 1 patch TD DAILY [facility] Last Admin: 02/19/18 12:07 Dose: 1 patch Pantoprazole Sodium (Protonix Ec Tab) 40 mg PO ACB [facility] Last Admin: 02/19/18 09:48 Dose: 40 mg Polyethylene Glycol (Miralax) 17 gm PO BID [facility] Last Admin: 02/19/18 09:49 Dose: 17 gm Thiamine HCl (Vitamin B1 Tab) 100 mg PO DAILY [facility] Last Admin: 02/19/18 09:49 Dose: 100 mg Trazodone HCl (Desyrel) 50 mg PO HS PRN PRN Reason: Insomnia Last Admin: 02/16/18 20:37 Dose: 50 mg - Labs Labs: 02/18/18 06:55 02/18/18 06:55 PT 11.5 SECONDS (9.7-12.2) 02/15/18 07:44 INR 1.1 02/15/18 07:44 Attending/Attestation - Attestation I have personally seen and examined this patient.: Yes I have fully participated in the care of the patient.: Yes I have reviewed all pertinent clinical information, including history, physical exam and plan: Yes Notes (Text): Seen and examined by me complaining of very anxious,not able to sleep last night,feeling tired , requesting medication for anxiety. Denies BM this morning I agree with the documentation of the resident's assessment and the plan I will give him0.5mg ativan Pending discharge to Rehab
[2018-02-19] MEDS: Methadone 40 mg Tab PO SCH (09:48)
[2018-02-19] MEDS: Multiple Vitamins Tab PO SCH (09:48)
[2018-02-19] MEDS: Pantoprazole 40 mg EC Tab PO SCH (09:48)
[2018-02-19] MEDS: POLYETHYLENE GLYCOL 3350 17 GM/Dose PACKET PO SCH ×2 (09:49→19:07)
[2018-02-19] MEDS ORDERED: Bisacodyl 5mg EC Tab PO PRN (14:23)
[2018-02-19] MEDS: Ergocalciferol 50,000 Intl Units Cap PO SCH (15:01)
[2018-02-20] MEDS: Methadone 40 mg Tab PO SCH (09:06)
[2018-02-20] MEDS: POLYETHYLENE GLYCOL 3350 17 GM/Dose PACKET PO SCH (09:06)
[2018-02-20] MEDS: Pantoprazole 40 mg EC Tab PO SCH (09:07)
[2018-02-20] MEDS: Multiple Vitamins Tab PO SCH (09:07)
[2018-02-20 10:51] VITALS: TEMP 98.2
--- NOTE | 2018-02-20 17:10 | CP.PCM.DIS ---
<Tanvir Weinstein - Last Filed: 02/20/18 17:06> Provider - Provider Date of Admission: 02/09/18 16:01 Attending physician: Sony Bell DO Time Spent in preparation of Discharge (in minutes): 40 Hospital Course - Lab Results Lab Results: Most Recent Lab Values WBC 7.2 K/uL (4.8-10.8) 02/18/18 06:55 RBC 3.61 Mil/uL (4.40-5.90) L 02/18/18 06:55 Hgb 10.7 g/dL (12.0-18.0) L 02/18/18 06:55 Hct 32.5 % (35.0-51.0) L 02/18/18 06:55 MCV 90.2 fL (80.0-94.0) 02/18/18 06:55 MCH 29.7 pg (27.0-31.0) 02/18/18 06:55 MCHC 32.9 g/dL (33.0-37.0) L 02/18/18 06:55 RDW 13.7 % (11.5-14.5) 02/18/18 06:55 Plt Count 181 K/uL (130-400) 02/18/18 06:55 MPV 9.4 fL (7.2-11.7) 02/18/18 06:55 Neut % (Auto) 59.1 % (50.0-75.0) 02/18/18 06:55 Lymph % (Auto) 25.0 % (20.0-40.0) 02/18/18 06:55 [place] % (Auto) 10.8 % (0.0-10.0) H 02/18/18 06:55 Eos % (Auto) 4.6 % (0.0-4.0) H 02/18/18 06:55 Baso % (Auto) 0.5 % (0.0-2.0) 02/18/18 06:55 Neut # (Auto) 4.3 K/uL (1.8-7.0) 02/18/18 06:55 Lymph # (Auto) 1.8 K/uL (1.0-4.3) 02/18/18 06:55 [place] # (Auto) 0.8 K/uL (0.0-0.8) 02/18/18 06:55 Eos # (Auto) 0.3 K/uL (0.0-0.7) 02/18/18 06:55 Baso # (Auto) 0.0 K/uL (0.0-0.2) 02/18/18 06:55 PT 11.5 SECONDS (9.7-12.2) 02/15/18 07:44 INR 1.1 02/15/18 07:44 Sodium 139 mmol/L (132-148) 02/18/18 06:55 Potassium 4.1 mmol/L (3.6-5.2) 02/18/18 06:55 Chloride 98 mmol/L (98-107) 02/18/18 06:55 Carbon Dioxide 32 mmol/L (22-30) H 02/18/18 06:55 Anion Gap 13 (10-20) 02/18/18 06:55 BUN 16 mg/dL (9-20) 02/18/18 06:55 Creatinine 0.5 mg/dL (0.8-1.5) L 02/18/18 06:55 Est GFR ( Amer) > 60 02/18/18 06:55 Est GFR (Non-Af Amer) > 60 02/18/18 06:55 POC Glucose (mg/dL) 138 mg/dL (65-110) H 02/18/18 00:38 Random Glucose 125 mg/dL (75-110) H 02/18/18 06:55 Calcium 9.2 mg/dl (8.6-10.4) 02/18/18 06:55 Phosphorus 5.5 mg/dL (2.5-4.5) H 02/18/18 06:55 Magnesium 1.9 mg/dL (1.6-2.3) 02/18/18 06:55 Total Bilirubin 0.3 mg/dL (0.2-1.3) 02/18/18 06:55 AST 38 U/L (17-59) 02/18/18 06:55 ALT 41 U/L (21-72) 02/18/18 06:55 Alkaline Phosphatase 84 U/L (38-126) 02/18/18 06:55 Total Creatine Kinase 122 U/L (55-170) 09/09/18 00:27 Total Protein 6.5 g/dL (6.3-8.3) 02/18/18 06:55 Albumin 3.4 g/dL (3.5-5.0) L 02/18/18 06:55 Globulin 3.1 gm/dL (2.2-3.9) 02/18/18 06:55 Albumin/Globulin Ratio 1.1 (1.0-2.1) 02/18/18 06:55 Lipase 147 U/L (23-300) 02/12/18 11:08 Vitamin B12 622 pg/mL (239-931) 02/12/18 11:08 25-OH Vitamin D Total 13.6 NG/ML (30.0-100.0) L 02/12/18 11:08 RBC Folate 512 ng/mL RBC (>280) 02/12/18 10:04 Free T4 1.04 ng/dL (0.78-2.19) 02/12/18 11:08 TSH 3rd Generation 2.25 mIU/L (0.46-4.68) 02/12/18 11:08 Urine Color Yellow (YELLOW) 02/09/18 13:54 Urine Clarity Hazy (Clear) 02/09/18 13:54 Urine pH 6.0 (5.0-8.0) 02/09/18 13:54 Ur Specific [place] 1.013 (1.003-1.030) 02/09/18 13:54 Urine Protein Negative mg/dL (NEGATIVE) 02/09/18 13:54 Urine Glucose (UA) Normal mg/dL (Normal) 02/09/18 13:54 Urine Ketones Negative mg/dL (NEGATIVE) 02/09/18 13:54 Urine Blood Negative (NEGATIVE) 02/09/18 13:54 Urine Nitrate Negative (NEGATIVE) 02/09/18 13:54 Urine Bilirubin Negative (NEGATIVE) 02/09/18 13:54 Urine Urobilinogen Normal mg/dL (0.2-1.0) 02/09/18 13:54 Ur Leukocyte Esterase Neg Mio/uL (Negative) 02/09/18 13:54 Urine WBC (Auto) 4 /hpf (0-5) 02/09/18 13:54 Urine RBC (Auto) 1 /hpf (0-3) 02/09/18 13:54 Ur Squamous Epith Cells 5 /hpf (0-5) 02/09/18 13:54 Urine Opiates Screen Negative (NEGATIVE) 02/09/18 13:54 Urine Methadone Screen Positive (NEGATIVE) H 02/09/18 13:54 Ur Barbiturates Screen Negative (NEGATIVE) 02/09/18 13:54 Ur Phencyclidine Scrn Negative (NEGATIVE) 02/09/18 13:54 Ur Amphetamines Screen Negative (NEGATIVE) 02/09/18 13:54 U Benzodiazepines Scrn Negative (NEGATIVE) 02/09/18 13:54 U Oth Cocaine Metabols Negative (NEGATIVE) 02/09/18 13:54 U Cannabinoids Screen Negative (NEGATIVE) 02/09/18 13:54 Alcohol, Quantitative 185 mg/dl (0-10) H 02/09/18 13:54 Hepatitis A IgM Ab Negative (NEGATIVE) 02/13/18 07:24 Hep Bs Antigen Negative (NEGATIVE) 02/13/18 07:24 Hep B Core IgM Ab Negative (NEGATIVE) 02/13/18 07:24 Hepatitis C Antibody Reactive (NEGATIVE) 02/13/18 07:24 HIV 1&2 Antibody Screen Negative (NEGATIVE) 02/13/18 07:24 - Hospital Course Hospital Course: Mr. Cisneros is a 63 year old male with past medical history of asthma, pancreatitis, iron deficiency anemia, hypertension, alcohol abuse, and heroin abuse who was admitted to detox unit on 02/09 for alcohol abuse and transferred to general medicine floors on 02/12 status-post fall for continued monitoring and workup. Patient is a chronic alcoholic and has been drinking since he was about [age] years old. He endorses drinking roughly 1 pint/day of vodka. His last drink was the morning of admission. Patient also states he consumes ~ 5 bags of heroin/day. Bianca Star was called on 02/11 for a fall. Per note, patient was attempting to go to bathroom when he lost control of his bladder and urinated on himself and the floor. Patient slipped on the wet floor and hit his head, suffering a 2 inch hematoma on the R side of his forehead. He denied loss of consciousness. CT of the head demonstrated no acute intracranial abnormality. Findings were suggestive of chronic atrophy, with chronic microvascular ischemic changes and punctate left basal ganglia calcification. Repeat CT head (02/13) showed no acute changes. Patient did not endorse headaches, dizziness, confusion, or changes in vision. On the floor, patient was continued on a maintenance dose of methadone begun in detox. He was also placed on all home medications as prescribed. Home Norvasc was increased to 10 mg PO daily. Patient endorsed ~40 lbs of unintentional weight loss within the past few months secondary to poor appetite. He also complained of dysphagia, generalized abdominal pain, and episodes of non-bloody diarrhea. CT chest/abdomen/pelvis (02/12) showed chronic pancreatitis; pancreatic duct, intrahepatic and extrahepatic biliary dilatation with no masses. 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 Abd U/S (02/12) showed increased echogenicity of hepatic parenchymal cortex suggestive for fatty liver infiltration or hepatic parenchymal disease. GI was consulted (Dr. Valderrama) for further workup. Pancreatic protocol CT (02/14) demonstrated intrahepatic biliary ductal dilatation, CBD dilated at 8 mm, as well as coarse calcifications consistent with chronic pancreatitis. Pancreatic duct was also dilated, measuring 5mm. Thick-walled distal esophagus was also noted w/ evidence of GERD. Patient was kept NPO and an EGD was performed (02/15 ) to rule out esophageal neoplasm given dysphagia and abnormality noted on CT. EGD findings were suggestive of esophageal candidiasis and gastritis. Patient was begun on Protonix 40 mg PO and Diflucan 100 mg PO daily. On 02/20, the patient declined to continue treatment and be discharged to subacute rehab for continued care. He wished to leave the hospital and go home, against medical advice. This decision was made with informed consent. The patient was told that subacute rehab was necessary for continued treatment and care. Explanation of the reasons why were discussed with the patient and girlfriend who was present at bedside. The risks of leaving were explained to the patient and include, but are not limited to, worsening of known or currently unknown conditions, permanent disability and from undiagnosed or untreated conditions. The patient voluntarily accepts these risks and signed an AMA form documenting our conversation. The patient was given the opportunity to ask questions and reconsider. The patient was encouraged to return to the ED at any time for further care. Discharge Exam - Head Exam Head Exam: ATRAUMATIC, NORMAL INSPECTION, NORMOCEPHALIC - Eye Exam Eye Exam: EOMI, Normal appearance - ENT Exam ENT Exam: Mucous Membranes Moist, Normal Exam - Neck Exam Neck exam: Normal Inspection - Respiratory Exam Respiratory Exam: Clear to PA & Lateral, NORMAL BREATHING PATTERN, UNREMARKABLE. absent: Rales, Rhonchi, Wheezes, Respiratory Distress, Stridor - Cardiovascular Exam Cardiovascular Exam: REGULAR RHYTHM, +S1, +S2 - GI/Abdominal Exam GI & Abdominal Exam: Normal Bowel Sounds, Soft, Unremarkable. absent: Distended , Firm, Guarding, Rebound, Rigid, Tenderness - Extremities Exam Extremities exam: normal capillary refill, normal inspection, pedal pulses present - Back Exam Back exam: NORMAL INSPECTION - Neurological Exam Neurological exam: Alert, CN II-XII Intact, Normal Gait, Oriented x3 - Psychiatric Exam Psychiatric exam: Normal Affect, Normal Mood - Skin Skin Exam: Dry, Intact, Normal Color, Warm Discharge Plan - Discharge Medications Prescriptions: traZODone [Desyrel] 50 mg PO HS PRN #30 tab PRN Reason: Insomnia - Follow Up Plan Condition: GOOD Disposition: AGAINST MEDICAL ADVICE Instructions: Drug Abuse and Drug Addiction (DC), Alcohol Abuse and Alcoholism (DC) Additional Instructions: Discharge Hotline Numbers: [place] [facility] 24 Hour Hotline: 2-174-564 HELP (7495) AA- Alcoholics Anonymous 24 Hour Hotline: 2-527-402- 1741 NA- Narcotics Anonymous 24 Hour Hotline: [place] [facility] [place] - [place] If needed you can reach the detox unit at Avoid all mood and mind altering substances including alcohol. Make every effort to make 90 meetings in 90 days and obtain a sponsor and get involved in 12 step recovery. Follow up with you primary doctor for your medical needs Nutrition: Eat balanced meals incorporating fruits, vegetables and protein. Drink plenty of water throughout the day at least 8 to 10 cups. Sleep is extremely important in your recovery. Follow Up Appointments: Referrals: Tung Valderrama MD [Staff Provider] - <Sony Bell - Last Filed: 02/20/18 18:42> Provider - Provider Date of Admission: 02/09/18 16:01 Attending physician: Sony Bell, DO Hospital Course - Lab Results Lab Results: Most Recent Lab Values WBC 7.2 K/uL (4.8-10.8) 02/18/18 06:55 RBC 3.61 Mil/uL (4.40-5.90) L 02/18/18 06:55 Hgb 10.7 g/dL (12.0-18.0) L 02/18/18 06:55 Hct 32.5 % (35.0-51.0) L 02/18/18 06:55 MCV 90.2 fL (80.0-94.0) 02/18/18 06:55 MCH 29.7 pg (27.0-31.0) 02/18/18 06:55 MCHC 32.9 g/dL (33.0-37.0) L 02/18/18 06:55 RDW 13.7 % (11.5-14.5) 02/18/18 06:55 Plt Count 181 K/uL (130-400) 02/18/18 06:55 MPV 9.4 fL (7.2-11.7) 02/18/18 06:55 Neut % (Auto) 59.1 % (50.0-75.0) 02/18/18 06:55 Lymph % (Auto) 25.0 % (20.0-40.0) 02/18/18 06:55 [place] % (Auto) 10.8 % (0.0-10.0) H 02/18/18 06:55 Eos % (Auto) 4.6 % (0.0-4.0) H 02/18/18 06:55 Baso % (Auto) 0.5 % (0.0-2.0) 02/18/18 06:55 Neut # (Auto) 4.3 K/uL (1.8-7.0) 02/18/18 06:55 Lymph # (Auto) 1.8 K/uL (1.0-4.3) 02/18/18 06:55 [place] # (Auto) 0.8 K/uL (0.0-0.8) 02/18/18 06:55 Eos # (Auto) 0.3 K/uL (0.0-0.7) 02/18/18 06:55 Baso # (Auto) 0.0 K/uL (0.0-0.2) 02/18/18 06:55 PT 11.5 SECONDS (9.7-12.2) 02/15/18 07:44 INR 1.1 02/15/18 07:44 Sodium 139 mmol/L (132-148) 02/18/18 06:55 Potassium 4.1 mmol/L (3.6-5.2) 02/18/18 06:55 Chloride 98 mmol/L (98-107) 02/18/18 06:55 Carbon Dioxide 32 mmol/L (22-30) H 02/18/18 06:55 Anion Gap 13 (10-20) 02/18/18 06:55 BUN 16 mg/dL (9-20) 02/18/18 06:55 Creatinine 0.5 mg/dL (0.8-1.5) L 02/18/18 06:55 Est GFR ( Amer) > 60 02/18/18 06:55 Est GFR (Non-Af Amer) > 60 02/18/18 06:55 POC Glucose (mg/dL) 138 mg/dL (65-110) H 02/18/18 00:38 Random Glucose 125 mg/dL (75-110) H 02/18/18 06:55 Calcium 9.2 mg/dl (8.6-10.4) 02/18/18 06:55 Phosphorus 5.5 mg/dL (2.5-4.5) H 02/18/18 06:55 Magnesium 1.9 mg/dL (1.6-2.3) 02/18/18 06:55 Total Bilirubin 0.3 mg/dL (0.2-1.3) 02/18/18 06:55 AST 38 U/L (17-59) 02/18/18 06:55 ALT 41 U/L (21-72) 02/18/18 06:55 Alkaline Phosphatase 84 U/L (38-126) 02/18/18 06:55 Total Creatine Kinase 122 U/L (55-170) 02/12/18 00:27 Total Protein 6.5 g/dL (6.3-8.3) 02/18/18 06:55 Albumin 3.4 g/dL (3.5-5.0) L 02/18/18 06:55 Globulin 3.1 gm/dL (2.2-3.9) 02/18/18 06:55 Albumin/Globulin Ratio 1.1 (1.0-2.1) 02/18/18 06:55 Lipase 147 U/L (23-300) 02/12/18 11:08 Vitamin B12 622 pg/mL (239-931) 02/12/18 11:08 25-OH Vitamin D Total 13.6 NG/ML (30.0-100.0) L 02/12/18 11:08 RBC Folate 512 ng/mL RBC (>280) 02/12/18 10:04 Free T4 1.04 ng/dL (0.78-2.19) 02/12/18 11:08 TSH 3rd Generation 2.25 mIU/L (0.46-4.68) 02/12/18 11:08 Urine Color Yellow (YELLOW) 02/09/18 13:54 Urine Clarity Hazy (Clear) 02/09/18 13:54 Urine pH 6.0 (5.0-8.0) 02/09/18 13:54 Ur Specific [place] 1.013 (1.003-1.030) 02/09/18 13:54 Urine Protein Negative mg/dL (NEGATIVE) 02/09/18 13:54 Urine Glucose (UA) Normal mg/dL (Normal) 02/09/18 13:54 Urine Ketones Negative mg/dL (NEGATIVE) 02/09/18 13:54 Urine Blood Negative (NEGATIVE) 02/09/18 13:54 Urine Nitrate Negative (NEGATIVE) 02/09/18 13:54 Urine Bilirubin Negative (NEGATIVE) 02/09/18 13:54 Urine Urobilinogen Normal mg/dL (0.2-1.0) 02/09/18 13:54 Ur Leukocyte Esterase Neg Mio/uL (Negative) 02/09/18 13:54 Urine WBC (Auto) 4 /hpf (0-5) 02/09/18 13:54 Urine RBC (Auto) 1 /hpf (0-3) 02/09/18 13:54 Ur Squamous Epith Cells 5 /hpf (0-5) 02/09/18 13:54 Urine Opiates Screen Negative (NEGATIVE) 02/09/18 13:54 Urine Methadone Screen Positive (NEGATIVE) H 02/09/18 13:54 Ur Barbiturates Screen Negative (NEGATIVE) 02/09/18 13:54 Ur Phencyclidine Scrn Negative (NEGATIVE) 02/09/18 13:54 Ur Amphetamines Screen Negative (NEGATIVE) 02/09/18 13:54 U Benzodiazepines Scrn Negative (NEGATIVE) 02/09/18 13:54 U Oth Cocaine Metabols Negative (NEGATIVE) 02/09/18 13:54 U Cannabinoids Screen Negative (NEGATIVE) 02/09/18 13:54 Alcohol, Quantitative 185 mg/dl (0-10) H 02/09/18 13:54 Hepatitis A IgM Ab Negative (NEGATIVE) 02/13/18 07:24 Hep Bs Antigen Negative (NEGATIVE) 02/13/18 07:24 Hep B Core IgM Ab Negative (NEGATIVE) 02/13/18 07:24 Hepatitis C Antibody Reactive (NEGATIVE) 02/13/18 07:24 HIV 1&2 Antibody Screen Negative (NEGATIVE) 02/13/18 07:24 Attending/Attestation - Attestation I have personally seen and examined this patient.: Yes I have fully participated in the care of the patient.: Yes I have reviewed all pertinent clinical information, including history, physical exam and plan: Yes Notes (Text): 02/20/18 18:40 Medical attending: Patient was seen and examined by me earlier in the day with the medical residents during rounds. I reviewed the above note by the resident and agree with the above, however I was later informed the patient wanted to leave AMA in afternoon. As mentioned previously he had an EGD Also of note is his malnourishment - BMI of only 14 on admission. I hope he tries to eat properly, however I suspect he may return to alcohol and heroine abuse. Sony Bell
[2018-02-20 17:39] VITALS: BP 129/87; PULSE 102; O2SAT 97
== END 2018-02-20 16:32 | disposition left against medical advice (07) | DRG 743 ==
LOC: C.ER 13:10 → C.7D 16:01 → C.5S 02-12 00:54
PROVIDERS: ADMIT Hospitalist; ATTEND Hospitalist
PROC: HZ2ZZZZ Detoxification Services for Substance Abuse Treatment (ICD-10-PCS; principal; 2018-02-09)
PROC: HZ81ZZZ Medication Management for Substance Abuse Treatment, Methadone Maintenance (ICD-10-PCS; 2018-02-09)
PROC: HZ59ZZZ Individual Psychotherapy for Substance Abuse Treatment, Supportive (ICD-10-PCS; 2018-02-09)
PROC: HZ46ZZZ Group Counseling for Substance Abuse Treatment, Psychoeducation (ICD-10-PCS; 2018-02-09)
PROC: 0DB58ZX Excision of Esophagus, Via Natural or Artificial Opening Endoscopic, Diagnostic (ICD-10-PCS; 2018-02-15)
PROC: 0DB68ZX Excision of Stomach, Via Natural or Artificial Opening Endoscopic, Diagnostic (ICD-10-PCS; 2018-02-15)
DX: F10.230 Alcohol dependence with withdrawal, uncomplicated (principal); F11.21 Opioid dependence, in remission; B37.81 Candidal esophagitis; B18.2 Chronic viral hepatitis C; E86.0 Dehydration; R64 Cachexia; Y90.6 Blood alcohol level of 120-199 mg/100 ml; F17.210 Nicotine dependence, cigarettes, uncomplicated; S00.83XA Contusion of other part of head, initial encounter; F32.9 Major depressive disorder, single episode, unspecified; K29.70 Gastritis, unspecified, without bleeding; R00.1 Bradycardia, unspecified; K86.0 Alcohol-induced chronic pancreatitis; I10 Essential (primary) hypertension; K21.0 Gastro-esophageal reflux disease with esophagitis; F41.9 Anxiety disorder, unspecified; J45.909 Unspecified asthma, uncomplicated; W01.198A Fall on same level from slipping, tripping and stumbling with subsequent striking against other object, initial encounter; Y92.230 Patient room in hospital as the place of occurrence of the external cause; Z68.1 Body mass index [BMI] 19.9 or less, adult